=== PATIENT | female | born 1940 | race Caucasian/White ===

== ENCOUNTER 2018-03-06 15:19 | Inpatient (IN) | payer OTHER ==
[~2018-03-06] VITALS: Ht 162.6 cm; Wt 73.5 kg
[~2018-03-06 15:19] MED LIST: ASPI-630 PO; ATEN25TA PO; ATOR40TA PO; CALC1TAB PO; LEVO88TA4 PO; LISI1TAB3 PO; MULT-246 PO; OMEG1CAP6 PO
[2018-03-06] MEDS ORDERED: IV NORMAL SALINE 500ML BAG 500 ML IV SCH (15:45)
[2018-03-06 16:04] LABS: BASO # 0.1 x10^3/uL (0.0-0.2); BASO % 2 % (0-3); EOS # 0.2 x10^3/uL (0.0-0.7); EOS % 2 % (0-3); HEMATOCRIT 39.2 % (36.0-47.0); HEMOGLOBIN 13.9 g/dL (12.0-15.5); LYMPH % 23 % (24-48); MEAN CORPUSCULAR HEMOGLOBIN 33 pg (25-35); MEAN CORPUSCULAR HGB CONC 35 g/dL (31-37); MEAN CORPUSCULAR VOLUME 93 fL (79-100); MONO # 0.6 x10^3/uL (0.0-1.1); MONO % 7 % (0-9); NEUT # 5.8 x10^3uL (1.8-7.7); NEUT % 67 % (31-73); PLATELET COUNT 232 x10^3/uL (140-400); RED BLOOD COUNT 4.24 x10^6/uL (3.50-5.40); WHITE BLOOD COUNT 8.7 x10^3/uL (4.0-11.0)
--- NOTE | 2018-03-06 16:04 | PHYS DOC ---
Past Medical History Past Medical History: High Cholesterol, Hypertension, Hyperthyroid, Other Additional Past Medical Histor: IRREG HEART BEAT Past Surgical History: Tonsillectomy Alcohol Use: None Drug Use: None Adult General Chief Complaint Chief Complaint: DIZZY/LIGHT HEADED HPI HPI Patient is a 78 year old female who presents with dizziness and near syncope while she was at a park just prior to arrival. The patient states that she was watching her relatives on a [id number] when she became very dizzy. She states that she tried to turn around and walk away but her left arm and leg were not functioning appropriately. She states that they called EMS and she was transported directly to the emergency department. She denies any prior history of syncope or CVA. The patient does have a history of thyroid disease and hypertension. She has had an incident of an irregular heart rate that was worked up by cardiology and states that everything was found to be normal. She denies any recent illness. Stroke scale via EMS was 0. Review of Systems Review of Systems Constitutional: Denies fever or chills [] Eyes: Denies change in visual acuity, redness, or eye pain [] HENT: Denies nasal congestion or sore throat [] Respiratory: Denies cough or shortness of breath [] Cardiovascular: No additional information not addressed in HPI [] GI: Denies abdominal pain, nausea, vomiting, bloody stools or diarrhea [] : Denies dysuria or hematuria [] Musculoskeletal: Denies back pain or joint pain [] Integument: Denies rash or skin lesions [] Neurologic: See history of present illness Endocrine: Denies polyuria or polydipsia [] All other systems were reviewed and found to be within normal limits, except as documented in this note. Current Medications Current Medications Current Medications Medications (Trade) Dose Ordered Sig/Alicja Start Time Stop Time Status Last Admin Dose Admin Sodium Chloride 1,000 ml @ 1,000 mls/hr 1X ONCE 03/06/18 17:30 03/06/18 18:29 DC 03/06/18 17:55 1,000 MLS/HR Allergies Allergies Allergies Coded Allergies Type Severity Reaction Last Updated Verified Sulfa (Sulfonamide Antibiotics) Adverse Reaction Intermediate diarrhea Yes procaine Adverse Reaction Intermediate "DOESN'T WORK ON ME" 03/06/18 Yes Physical Exam Physical Exam Constitutional: Well developed, well nourished, no acute distress, non-toxic appearance. [] HENT: Normocephalic, atraumatic, bilateral external ears normal, oropharynx moist, no oral exudates, nose normal. [] Eyes: PERRLA, EOMI, conjunctiva normal, no discharge. [] Neck: Normal range of motion, no tenderness, supple, no stridor. [] Cardiovascular:Heart rate regular rhythm, no murmur [] Lungs & Thorax: Bilateral breath sounds clear to auscultation [] Abdomen: Bowel sounds normal, soft, no tenderness, no masses, no pulsatile masses. [] Skin: Warm, dry, no erythema, no rash. [] Back: No tenderness, no CVA tenderness. [] Extremities: No tenderness, no cyanosis, no clubbing, ROM intact, no edema. [] Neurologic: Alert and oriented X 3, normal motor function, normal sensory function, no focal deficits noted, cranial nerves II through XII are grossly intact, cerebellar function is intact. [] Psychologic: Affect normal, judgement normal, mood normal. [] Current Patient Data Vital Signs Vital Signs Date Time Temp Pulse Resp B/P (MAP) Pulse Ox O2 Delivery O2 Flow Rate FiO2 03/06/18 18:13 62 16 100 03/06/18 15:19 98.3 139/64 (89) Room Air 98.3 Lab Values Laboratory Tests Test 03/06/18 15:45 03/06/18 15:55 White Blood Count 8.7 x10^3/uL (4.0-11.0) Red Blood Count 4.24 x10^6/uL (3.50-5.40) Hemoglobin 13.9 g/dL (12.0-15.5) Hematocrit 39.2 % (36.0-47.0) Mean Corpuscular Volume 93 fL (79-100) Mean Corpuscular Hemoglobin 33 pg (25-35) Mean Corpuscular Hemoglobin Concent 35 g/dL (31-37) Red Cell Distribution Width 14.0 % (11.5-14.5) Platelet Count 232 x10^3/uL (140-400) Neutrophils (%) (Auto) 67 % (31-73) Lymphocytes (%) (Auto) 23 % (24-48) L Monocytes (%) (Auto) 7 % (0-9) Eosinophils (%) (Auto) 2 % (0-3) Basophils (%) (Auto) 2 % (0-3) Neutrophils # (Auto) 5.8 x10^3uL (1.8-7.7) Lymphocytes # (Auto) 2.0 x10^3/uL (1.0-4.8) Monocytes # (Auto) 0.6 x10^3/uL (0.0-1.1) Eosinophils # (Auto) 0.2 x10^3/uL (0.0-0.7) Basophils # (Auto) 0.1 x10^3/uL (0.0-0.2) Sodium Level 140 mmol/L (136-145) Potassium Level 3.9 mmol/L (3.5-5.1) Chloride Level 101 mmol/L (98-107) Carbon Dioxide Level 29 mmol/L (21-32) Anion Gap 10 (6-14) Blood Urea Nitrogen 34 mg/dL (7-20) H Creatinine 1.7 mg/dL (0.6-1.0) H Estimated GFR (Cockcroft-Gault) 29.1 BUN/Creatinine Ratio 20 (6-20) Glucose Level 148 mg/dL (70-99) H Calcium Level 9.7 mg/dL (8.5-10.1) Magnesium Level 2.2 mg/dL (1.8-2.4) Total Bilirubin 1.0 mg/dL (0.2-1.0) Aspartate Amino Transferase (AST) 66 U/L (15-37) H Alanine Aminotransferase (ALT) 57 U/L (14-59) Alkaline Phosphatase 81 U/L (46-116) Troponin I Quantitative < 0.017 ng/mL (0.000-0.055) Total Protein 7.1 g/dL (6.4-8.2) Albumin 3.6 g/dL (3.4-5.0) Albumin/Globulin Ratio 1.0 (1.0-1.7) Glucose (Fingerstick) 125 mg/dL (70-99) H Laboratory Tests 03/06/18 15:45 Laboratory Tests 03/06/18 15:45 EKG EKG [] Radiology/Procedures Radiology/Procedures [] PATIENT: MICKEY YOUSSEF ACCOUNT: [id number] : 1940 LOCATION: ER AGE: 78 SEX: F EXAM STATUS: REG ER ORD. PHYSICIAN: DELMA WILBURN APRN REASON: near syncope PROCEDURE: CT HEAD WO CONTRAST CHEST PA LATERAL, CT HEAD WO CONTRAST dated 03/06/2018 4:04 PM Indication:near syncope Comparison: No comparison is available. Technique: Noncontrast images were obtained. One or more of the following individualized dose reduction techniques were utilized for this examination: 1. Automated exposure control 2. Adjustment of the mA and/or kV according to patient size 3. Use of iterative reconstruction technique Findings: No intracranial hemorrhage or abnormal extra-axial fluid collection is seen. No focal area of abnormal density is identified in the brain. The ventricles and basilar cisterns are normally positioned. The paranasal sinuses and mastoid air cells appear clear. IMPRESSION: No acute abnormality. Chest PA and lateral 03/06/2018. Reason for exam: Dizziness and near syncope. No infiltrate or effusion is seen. Heart size and pulmonary vascularity appear normal. IMPRESSION: No acute abnormality. Electronically signed by: Shawanda Encarnacion Jr., MD (03/06/2018 4:34 PM) [facility] DICTATED and SIGNED BY: SHAWANDA ENCARNACION Jr, MD DATE: 03/06/18 163 Course & Med Decision Making Course & Med Decision Making Pertinent Labs and Imaging studies reviewed. (See chart for details) []The patient has been admitted for further evaluation. Neurology has been consulted. The patient is being admitted to Dr. Garcia's service. Dragon Disclaimer Dragon Disclaimer This electronic medical record was generated, in whole or in part, using a voice recognition dictation system. Departure Departure Impression: Primary Impression: Near syncope Disposition: ADMITTED INPATIENT Admitting Physician: Fidelina Garcia Condition: GOOD Referrals: PARADISE LLANES (PCP) DELMA WILBURN APRN Mar 06, 2018 16:04
[2018-03-06 16:08] LABS: CALCIUM 9.7 mg/dL (8.5-10.1); CREATININE 1.7 mg/dL (0.6-1.0); GFR 29.1; POTASSIUM 3.9 mmol/L (3.5-5.1)
[2018-03-06 16:14] LABS: ALBUMIN 3.6 g/dL (3.4-5.0); MAGNESIUM 2.2 mg/dL (1.8-2.4); TOTAL PROTEIN 7.1 g/dL (6.4-8.2)
--- NOTE | 2018-03-06 16:37 | RAD ---
CHEST PA LATERAL, CT HEAD WO CONTRAST dated 03/06/2018 4:04 PM Indication:near syncope Comparison: No comparison is available. Technique: Noncontrast images were obtained. One or more of the following individualized dose reduction techniques were utilized for this examination: 1. Automated exposure control 2. Adjustment of the mA and/or kV according to patient size 3. Use of iterative reconstruction technique Findings: No intracranial hemorrhage or abnormal extra-axial fluid collection is seen. No focal area of abnormal density is identified in the brain. The ventricles and basilar cisterns are normally positioned. The paranasal sinuses and mastoid air cells appear clear. IMPRESSION: No acute abnormality. Chest PA and lateral 03/06/2018. Reason for exam: Dizziness and near syncope. No infiltrate or effusion is seen. Heart size and pulmonary vascularity appear normal. IMPRESSION: No acute abnormality. Electronically signed by: Mehdi Encarnacion Jr., MD (03/06/2018 4:34 PM) [facility]
[2018-03-06] MEDS ORDERED: IV NORMAL SALINE 1000ML BAG 1,000 ML IV ONE (17:30)
[2018-03-06] MEDS ORDERED: fentaNYL PF VIAL 100 MCG/2 ML VIAL IV PRN (18:30)
[2018-03-06] MEDS ORDERED: ACETAMINOPHEN 325 MG TABLET. PO PRN (18:30)
[2018-03-06] MEDS ORDERED: MORPHINE SULFATE 4 MG/ML VIAL. IV PRN (18:30)
[2018-03-06] MEDS ORDERED: ONDANSETRON PF 4 MG/2 ML VIAL. IV PRN (18:30)
[2018-03-06 18:43] LABS: BILIRUBIN,URINE NEGATIVE (NEG); CLARITY,URINE CLEAR; COLOR,URINE YELLOW; NITRITE,URINE NEGATIVE (NEG); PH,URINE 6.5; PROTEIN,URINE NEGATIVE (NEG-TRACE); UROBILINOGEN,URINE 0.2 mg/dL (0.2 mg/dL)
[2018-03-06 18:52] LABS: BACTERIA,URINE MODERATE /HPF (0-FEW); RBC,URINE OCC /HPF (0-2); WBC,URINE 20-40 /HPF (0-4)
[2018-03-06 18:53] LABS: SQUAMOUS EPITHELIAL CELL,UR MANY /LPF
[2018-03-06 19:45] VITALS: BP 127/76
--- NOTE | 2018-03-06 19:53 | PDOC1 ---
History and Physical Date of Admission Date of Admission DATE: 03/06/18 TIME: 19:49 Source Source: Chart review History of Present Illness History of Present Illness Leeanna Weems is a 78 year old female admit with new dizziness and near syncope. She was at the [employer], she was then dizzy, and had trouble walking and had new leg weakness. New left sided weakness, she is usually very active, drives herself and is very independent. She tried to walk but her left arm and leg were not functioning appropriately. EMS transported and she has not tried to stand since. . She denies any prior history of syncope or CVA. The patient does have a history of thyroid disease and hypertension. Recent neg w/lowe for irregular heart rhythm Past Medical History Cardiovascular: No pertinent hx Pulmonary: No pertinent hx Past Surgical History Past Surgical History: No pertinent history Family History Family History: Coronary Artery Disease, Heart Disease Social History Smoke: No ALCOHOL: none Current Problem List Problem List Problems Medical Problems: (1) Near syncope Status: Acute Current Medications Current Medications Current Medications Sodium Chloride 500 ml @ 500 mls/hr Q1H IV Last administered on 03/06/18at 16: 17; Start 03/06/18 at 15:45; Stop 03/06/18 at 16:18; Status DC Sodium Chloride 1,000 ml @ 1,000 mls/hr 1X ONCE IV Last administered on at 17:55; Start 03/06/18 at 17:30; Stop 03/06/18 at 18:29; Status DC Ondansetron HCl (Zofran) 4 mg PRN Q8HRS PRN IV NAUSEA/VOMITING; Start 03/06/18 at 18:30; Stop 03/07/18 at 18:29 Morphine Sulfate (Morphine Sulfate) 4 mg PRN Q2HR PRN IV PAIN; Start 03/06/18 at 18:30; Stop 03/07/18 at 18:29 Fentanyl Citrate (Fentanyl 2ml Vial) 50 mcg PRN Q2HR PRN IV PAIN; Start at 18:30; Stop 03/07/18 at 18:29 Sodium Chloride 1,000 ml @ 125 mls/hr Q8H IV ; Start 03/06/18 at 18:27; Stop at 18:26 Acetaminophen (Tylenol) 650 mg PRN Q4HRS PRN PO FEVER; Start 03/06/18 at 18:30 ; Stop 03/07/18 at 18:29 Ceftriaxone Sodium 1 gm/ Dextrose 50 ml @ 100 mls/hr Q24H IV ; Start 03/06/18 at 20:00; Status UNV Active Scripts Active Reported Atenolol 25 Mg Tablet 1 Tab PO DAILY Lisinopril-Hctz 10-12.5 Mg Tab (Lisinopril/Hydrochlorothiazide) 1 Each Tablet 1 Tab PO DAILY Levothyroxine Sodium 88 Mcg Tablet 1 Tab PO DAILY Multi-Vitamin Daily (Multivitamin) 1 Each Tablet 1 Each PO DAILY Caltrate 600 + D Tablet (Calcium Carbonate/Vitamin D3) 1 Each Tablet 1 Each PO BID Fish Oil 1,000 Mg Capsule (Kaleva-3 Fatty Acids/Fish Oil) 1 Each Capsule 1 Each PO BID Lipitor (Atorvastatin Calcium) 40 Mg Tablet 1 Tab PO QHS Aspirin 81 Mg Tab.chew 1 Tab PO DAILY Allergies Allergies: Coded Allergies: Sulfa (Sulfonamide Antibiotics) (Verified Adverse Reaction, Intermediate, diarrhea, 02/03/15) procaine (Verified Adverse Reaction, Intermediate, "DOESN'T WORK ON ME", ) ROS General: YES: Chills, Fatigue; No: Night Sweats, Malaise, Appetite, Other PSYCHOLOGICAL ROS: No: Anxiety, Behavioral Disorder, Concentration difficultie , Decreased libido, Depression, Disorientation, Hallucinations, Hostility, Irritablity, Memory difficulties, Mood Swings, Obsessive thoughts, Physical abuse, Sexual abuse, Sleep disturbances, Suicidal ideation, Other Eyes: No Blurry vision, No Decreased vision, No Double vision, No Dry eyes, No Excessive tearing, No Eye Pain, No Itchy Eyes, No Loss of vision, No Photophobia , No Scotomata, No Uses contacts, No Uses glasses, No Other Respiratory: No: Cough, Hemoptysis, Orthopnea, Pleuritic Pain, Shortness of breath, SOB with excertion, Sputum Changes, Stridor, Tachypnea, Wheezing, Other Cardiovascular: No Chest Pain, No Palpitations, No Orthopnea, No Paroxysmal Noc. Dyspnea, No Edema, No Lt Headedness, No Other Gastrointestinal: No Nausea, No Vomiting, No Abdominal Pain, No Diarrhea, No Constipation, No Melena, No Hematochezia, No Other Genitourinary: No Dysuria, No Frequency, No Incontinence, No Hematuria, No Retention, No Discharge, No Urgency, No Pain, No Flank Pain, No Other, No , No , No , No , No , No , No Musculoskeletal: Yes Gait Disturbance, Yes Muscular Weakness, Yes Other; No Joint Pain, No Joint Stiffness, No Joint Swelling, No Muscle Pain, No Pain In:, No Swelling In: Neurological: Yes Confusion, Yes Dizziness, Yes Gait Disturbance, Yes Impaired Coord/balance, Yes Other; No Behavorial Changes, No Bowel/Bladder ControlChng, No Headaches, No Numbness/Tingling, No Seizures, No Speech Problems, No Tremors, No Visual Changes, No Weakness Skin: No Dry Skin, No Eczema, No Hair Changes, No Lumps, No Mole Changes, No Mottling, No Nail Changes, No Pruritus, No Rash, No Skin Lesion Changes, No Other, No Acne Physical Exam General: Alert, Cooperative, mild distress, Other (oriented, but some confusion , family reports she is not fully herself) Lungs: Clear to auscultation, Normal air movement Heart: S1S2, no gallops, irregularly irregular Abdomen: Normal bowel sounds, Soft Extremities: No cyanosis Skin: No rashes Neuro: Normal speech, Normal tone, Sensation intact, Cranial nerves 3-12 NL, Reflexes 2+, Other Psych/Mental Status: Mood NL Vitals Vitals Vital Signs Date Time Temp Pulse Resp B/P (MAP) Pulse Ox O2 Delivery O2 Flow Rate FiO2 03/06/18 19:13 62 18 100 03/06/18 15:19 98.3 139/64 (89) Room Air 98.3 Labs Labs Laboratory Tests Test 03/06/18 15:45 03/06/18 15:55 03/06/18 18:30 White Blood Count 8.7 x10^3/uL (4.0-11.0) Red Blood Count 4.24 x10^6/uL (3.50-5.40) Hemoglobin 13.9 g/dL (12.0-15.5) Hematocrit 39.2 % (36.0-47.0) Mean Corpuscular Volume 93 fL (79-100) Mean Corpuscular Hemoglobin 33 pg (25-35) Mean Corpuscular Hemoglobin Concent 35 g/dL (31-37) Red Cell Distribution Width 14.0 % (11.5-14.5) Platelet Count 232 x10^3/uL (140-400) Neutrophils (%) (Auto) 67 % (31-73) Lymphocytes (%) (Auto) 23 % (24-48) Monocytes (%) (Auto) 7 % (0-9) Eosinophils (%) (Auto) 2 % (0-3) Basophils (%) (Auto) 2 % (0-3) Neutrophils # (Auto) 5.8 x10^3uL (1.8-7.7) Lymphocytes # (Auto) 2.0 x10^3/uL (1.0-4.8) Monocytes # (Auto) 0.6 x10^3/uL (0.0-1.1) Eosinophils # (Auto) 0.2 x10^3/uL (0.0-0.7) Basophils # (Auto) 0.1 x10^3/uL (0.0-0.2) Sodium Level 140 mmol/L (136-145) Potassium Level 3.9 mmol/L (3.5-5.1) Chloride Level 101 mmol/L (98-107) Carbon Dioxide Level 29 mmol/L (21-32) Anion Gap 10 (6-14) Blood Urea Nitrogen 34 mg/dL (7-20) Creatinine 1.7 mg/dL (0.6-1.0) Estimated GFR (Cockcroft-Gault) 29.1 BUN/Creatinine Ratio 20 (6-20) Glucose Level 148 mg/dL (70-99) Calcium Level 9.7 mg/dL (8.5-10.1) Magnesium Level 2.2 mg/dL (1.8-2.4) Total Bilirubin 1.0 mg/dL (0.2-1.0) Aspartate Amino Transf (AST/SGOT) 66 U/L (15-37) Alanine Aminotransferase (ALT/SGPT) 57 U/L (14-59) Alkaline Phosphatase 81 U/L (46-116) Troponin I Quantitative < 0.017 ng/mL (0.000-0.055) Total Protein 7.1 g/dL (6.4-8.2) Albumin 3.6 g/dL (3.4-5.0) Albumin/Globulin Ratio 1.0 (1.0-1.7) Glucose (Fingerstick) 125 mg/dL (70-99) Urine Collection Type Void Urine Color Yellow Urine Clarity Clear Urine pH 6.5 Urine Specific [place] 1.015 Urine Protein Negative mg/dL (NEG-TRACE) Urine Glucose (UA) Negative mg/dL (NEG) Urine Ketones (Stick) Negative mg/dL (NEG) Urine Blood Negative (NEG) Urine Nitrite Negative (NEG) Urine Bilirubin Negative (NEG) Urine Urobilinogen Dipstick 0.2 mg/dL (0.2 mg/dL) Urine Leukocyte Esterase Large (NEG) Urine RBC Occ /HPF (0-2) Urine WBC 20-40 /HPF (0-4) Urine Squamous Epithelial Cells Many /LPF Urine Bacteria Moderate /HPF (0-FEW) Laboratory Tests Test 03/06/18 15:45 03/06/18 15:55 03/06/18 18:30 White Blood Count 8.7 x10^3/uL (4.0-11.0) Red Blood Count 4.24 x10^6/uL (3.50-5.40) Hemoglobin 13.9 g/dL (12.0-15.5) Hematocrit 39.2 % (36.0-47.0) Mean Corpuscular Volume 93 fL (79-100) Mean Corpuscular Hemoglobin 33 pg (25-35) Mean Corpuscular Hemoglobin Concent 35 g/dL (31-37) Red Cell Distribution Width 14.0 % (11.5-14.5) Platelet Count 232 x10^3/uL (140-400) Neutrophils (%) (Auto) 67 % (31-73) Lymphocytes (%) (Auto) 23 % (24-48) Monocytes (%) (Auto) 7 % (0-9) Eosinophils (%) (Auto) 2 % (0-3) Basophils (%) (Auto) 2 % (0-3) Neutrophils # (Auto) 5.8 x10^3uL (1.8-7.7) Lymphocytes # (Auto) 2.0 x10^3/uL (1.0-4.8) Monocytes # (Auto) 0.6 x10^3/uL (0.0-1.1) Eosinophils # (Auto) 0.2 x10^3/uL (0.0-0.7) Basophils # (Auto) 0.1 x10^3/uL (0.0-0.2) Sodium Level 140 mmol/L (136-145) Potassium Level 3.9 mmol/L (3.5-5.1) Chloride Level 101 mmol/L (98-107) Carbon Dioxide Level 29 mmol/L (21-32) Anion Gap 10 (6-14) Blood Urea Nitrogen 34 mg/dL (7-20) Creatinine 1.7 mg/dL (0.6-1.0) Estimated GFR (Cockcroft-Gault) 29.1 BUN/Creatinine Ratio 20 (6-20) Glucose Level 148 mg/dL (70-99) Calcium Level 9.7 mg/dL (8.5-10.1) Magnesium Level 2.2 mg/dL (1.8-2.4) Total Bilirubin 1.0 mg/dL (0.2-1.0) Aspartate Amino Transf (AST/SGOT) 66 U/L (15-37) Alanine Aminotransferase (ALT/SGPT) 57 U/L (14-59) Alkaline Phosphatase 81 U/L (46-116) Troponin I Quantitative < 0.017 ng/mL (0.000-0.055) Total Protein 7.1 g/dL (6.4-8.2) Albumin 3.6 g/dL (3.4-5.0) Albumin/Globulin Ratio 1.0 (1.0-1.7) Glucose (Fingerstick) 125 mg/dL (70-99) Urine Collection Type Void Urine Color Yellow Urine Clarity Clear Urine pH 6.5 Urine Specific [place] 1.015 Urine Protein Negative mg/dL (NEG-TRACE) Urine Glucose (UA) Negative mg/dL (NEG) Urine Ketones (Stick) Negative mg/dL (NEG) Urine Blood Negative (NEG) Urine Nitrite Negative (NEG) Urine Bilirubin Negative (NEG) Urine Urobilinogen Dipstick 0.2 mg/dL (0.2 mg/dL) Urine Leukocyte Esterase Large (NEG) Urine RBC Occ /HPF (0-2) Urine WBC 20-40 /HPF (0-4) Urine Squamous Epithelial Cells Many /LPF Urine Bacteria Moderate /HPF (0-FEW) VTE Prophylaxis Ordered VTE Prophylaxis Devices: No VTE Pharmacological Prophylaxi: Yes Assessment/Plan Assessment/Plan acute metabolic encephalopathy, UTI, start rocephin Left sided weakness, transient, w.u TIA< Ct neg, try MRI brain, carotids, she had recent Echo and CV outpatient appt for prior "irreg heart beat" normal reflexes, admit KALIN PABON MD Mar 06, 2018 19:53
[2018-03-06] MEDS ORDERED: ASPIRIN ENTERIC COATED 325 MG TABLET.DR. PO ONE (20:00)
[2018-03-06] MEDS: cefTRIAXone IV Push 1 GM VIAL. IVP SCH (21:02)
[2018-03-06] MEDS: ATORVASTATIN CALCIUM 40 MG TABLET. PO SCH (21:02)
[2018-03-06] MEDS: IV NORMAL SALINE 1000ML BAG 1,000 ML IV SCH (21:03)
[2018-03-06 23:00] VITALS: BP_SYST 115; BP_SYST 156; BP_DIAS 55; BP_DIAS 83
[2018-03-07] VITALS (12 sets, daily range): BP systolic 123–166; BP diastolic 57–86
[2018-03-07 04:54] LABS: BASO % 1 % (0-3); EOS # 0.1 x10^3/uL (0.0-0.7); EOS % 2 % (0-3); HEMATOCRIT 36.6 % (36.0-47.0); HEMOGLOBIN 12.9 g/dL (12.0-15.5); LYMPH # 2.5 x10^3/uL (1.0-4.8); LYMPH % 31 % (24-48); MEAN CORPUSCULAR HEMOGLOBIN 33 pg (25-35); MEAN CORPUSCULAR HGB CONC 35 g/dL (31-37); MEAN CORPUSCULAR VOLUME 94 fL (79-100); MONO # 0.6 x10^3/uL (0.0-1.1); MONO % 8 % (0-9); NEUT # 4.7 x10^3uL (1.8-7.7); NEUT % 59 % (31-73); PLATELET COUNT 168 x10^3/uL (140-400); RED BLOOD COUNT 3.92 x10^6/uL (3.50-5.40); RED CELL DISTRIBUTION WIDTH 13.1 % (11.5-14.5); WHITE BLOOD COUNT 7.9 x10^3/uL (4.0-11.0)
[2018-03-07 05:25] LABS: CALCIUM 8.4 mg/dL (8.5-10.1); CREATININE 1.4 mg/dL (0.6-1.0); GFR 36.5; POTASSIUM 3.6 mmol/L (3.5-5.1)
[2018-03-07 05:28] LABS: CHOLESTEROL/HDL RATIO 2.8
--- NOTE | 2018-03-07 07:01 | RAD ---
DOPPLER CAROTID BILAT Clinical Indication: TIA.. Procedure: Pulsed wave and color-flow duplex imaging was utilized to evaluate the extracranial carotid arteries. Comparison: None. Findings: RIGHT SIDE: Scattered mild atherosclerotic plaque on ahmadi-scale images. Distal CCA peak systolic velocity 58 cm/sec. ICA peak systolic velocity 69 cm/sec. The right ICA/CCA ratio is 1.2. Flow within the right vertebral artery and right ECA is directed antegrade. LEFT SIDE: Scattered mild atherosclerotic plaque on ahmadi-scale images. Distal CCA peak systolic velocity 58 cm/sec. ICA peak systolic velocity 90 cm/sec. The left ICA/CCA ratio is 1.6. Flow within the left vertebral artery and left ECA is directed antegrade. Carotid legend: CCA = common carotid artery ICA = internal carotid artery ECA = external carotid artery IMPRESSION: 1. Mild scattered atherosclerotic plaque in the carotid bulbs. 2. No hemodynamically significant stenosis in the ICA. Electronically signed by: Conner Carmona DO (03/07/2018 6:57 AM) [facility]
[2018-03-07] MEDS: LEVOTHYROXINE 88 MCG TABLET PO SCH (07:03)
[2018-03-07] MEDS: IV NORMAL SALINE 1000ML BAG 1,000 ML IV SCH ×2 (07:04→16:03)
[2018-03-07] MEDS: ASPIRIN ENTERIC COATED 325 MG TABLET.DR. PO SCH (08:00)
[2018-03-07] MEDS: MULTIVITAMIN with MINERAL TABLET. PO SCH (08:22)
[2018-03-07] MEDS: hydroCHLOROthiazide 12.5 MG CAPSULE PO SCH (08:23)
[2018-03-07] MEDS: LISINOPRIL 10 MG TABLET PO SCH (08:23)
[2018-03-07] MEDS: CALCIUM CARB/VIT D3 500/200 TABLET. PO SCH ×2 (08:23→16:08)
[2018-03-07] MEDS: ATENOLOL 25 MG TABLET. PO SCH (08:24)
[2018-03-07] MEDS: ENOXAPARIN 30 MG/0.3 ML SYRINGE. SQ SCH (08:25)
[2018-03-07] MEDS ORDERED: INFLUENZA VAX SCREEN BY RX. MC ONE (09:00)
--- NOTE | 2018-03-07 14:01 | PDOC ---
PROGRESS NOTES Chief Complaint Chief Complaint acute metabolic encephalopathy, CVA symptom left side weakness resolved bl blurry vision possible UTI wo symptom she had recent Echo and CV outpatient appt for prior "irreg heart beat" hypothyroidism MIQUEL, vasomotor ckd3 plan: fu with neuro MRI brain pending on asa 325mg daily, lipitor on HTN meds, already taken today before i saw pt on ceftriaxone, no symptom, cont for now, dc if neg ucx PTOT dvt ppx talked to daughter at bedside add tele History of Present Illness History of Present Illness still blurry vision left side weakness much better Vitals Vitals Vital Signs Date Time Temp Pulse Resp B/P (MAP) Pulse Ox O2 Delivery O2 Flow Rate FiO2 03/07/18 11:00 98.0 56 16 166/67 (100) 100 Room Air 98.0 Physical Exam Physical Exam bl strength 5/5 General: Alert, Cooperative, mild distress, Other (oriented, but some confusion , family reports she is not fully herself) Heart: Regular rate, Normal S1, Normal S2 Lungs: Clear Abdomen: Normal bowel sounds, Soft Extremities: No cyanosis Skin: No rashes Labs LABS Laboratory Tests Test 03/06/18 15:45 03/06/18 15:55 03/06/18 18:30 03/07/18 04:15 White Blood Count 8.7 x10^3/uL (4.0-11.0) 7.9 x10^3/uL (4.0-11.0) Red Blood Count 4.24 x10^6/uL (3.50-5.40) 3.92 x10^6/uL (3.50-5.40) Hemoglobin 13.9 g/dL (12.0-15.5) 12.9 g/dL (12.0-15.5) Hematocrit 39.2 % (36.0-47.0) 36.6 % (36.0-47.0) Mean Corpuscular Volume 93 fL (79-100) 94 fL (79-100) Mean Corpuscular Hemoglobin 33 pg (25-35) 33 pg (25-35) Mean Corpuscular Hemoglobin Concent 35 g/dL (31-37) 35 g/dL (31-37) Red Cell Distribution Width 14.0 % (11.5-14.5) 13.1 % (11.5-14.5) Platelet Count 232 x10^3/uL (140-400) 168 x10^3/uL (140-400) Neutrophils (%) (Auto) 67 % (31-73) 59 % (31-73) Lymphocytes (%) (Auto) 23 % (24-48) 31 % (24-48) Monocytes (%) (Auto) 7 % (0-9) 8 % (0-9) Eosinophils (%) (Auto) 2 % (0-3) 2 % (0-3) Basophils (%) (Auto) 2 % (0-3) 1 % (0-3) Neutrophils # (Auto) 5.8 x10^3uL (1.8-7.7) 4.7 x10^3uL (1.8-7.7) Lymphocytes # (Auto) 2.0 x10^3/uL (1.0-4.8) 2.5 x10^3/uL (1.0-4.8) Monocytes # (Auto) 0.6 x10^3/uL (0.0-1.1) 0.6 x10^3/uL (0.0-1.1) Eosinophils # (Auto) 0.2 x10^3/uL (0.0-0.7) 0.1 x10^3/uL (0.0-0.7) Basophils # (Auto) 0.1 x10^3/uL (0.0-0.2) 0.0 x10^3/uL (0.0-0.2) Sodium Level 140 mmol/L (136-145) 141 mmol/L (136-145) Potassium Level 3.9 mmol/L (3.5-5.1) 3.6 mmol/L (3.5-5.1) Chloride Level 101 mmol/L (98-107) 107 mmol/L (98-107) Carbon Dioxide Level 29 mmol/L (21-32) 26 mmol/L (21-32) Anion Gap 10 (6-14) 8 (6-14) Blood Urea Nitrogen 34 mg/dL (7-20) 25 mg/dL (7-20) Creatinine 1.7 mg/dL (0.6-1.0) 1.4 mg/dL (0.6-1.0) Estimated GFR (Cockcroft-Gault) 29.1 36.5 BUN/Creatinine Ratio 20 (6-20) Glucose Level 148 mg/dL (70-99) 89 mg/dL (70-99) Calcium Level 9.7 mg/dL (8.5-10.1) 8.4 mg/dL (8.5-10.1) Magnesium Level 2.2 mg/dL (1.8-2.4) Total Bilirubin 1.0 mg/dL (0.2-1.0) Aspartate Amino Transf (AST/SGOT) 66 U/L (15-37) Alanine Aminotransferase (ALT/SGPT) 57 U/L (14-59) Alkaline Phosphatase 81 U/L (46-116) Troponin I Quantitative < 0.017 ng/mL (0.000-0.055) Total Protein 7.1 g/dL (6.4-8.2) Albumin 3.6 g/dL (3.4-5.0) Albumin/Globulin Ratio 1.0 (1.0-1.7) Glucose (Fingerstick) 125 mg/dL (70-99) Urine Collection Type Void Urine Color Yellow Urine Clarity Clear Urine pH 6.5 Urine Specific Rowe 1.015 Urine Protein Negative mg/dL (NEG-TRACE) Urine Glucose (UA) Negative mg/dL (NEG) Urine Ketones (Stick) Negative mg/dL (NEG) Urine Blood Negative (NEG) Urine Nitrite Negative (NEG) Urine Bilirubin Negative (NEG) Urine Urobilinogen Dipstick 0.2 mg/dL (0.2 mg/dL) Urine Leukocyte Esterase Large (NEG) Urine RBC Occ /HPF (0-2) Urine WBC 20-40 /HPF (0-4) Urine Squamous Epithelial Cells Many /LPF Urine Bacteria Moderate /HPF (0-FEW) Triglycerides Level 84 mg/dL (0-150) Cholesterol Level 151 mg/dL (0-200) LDL Cholesterol, Calculated 81 mg/dL (0-100) VLDL Cholesterol, Calculated 17 mg/dL (0-40) Non-HDL Cholesterol Calculated 98 mg/dL (0-129) HDL Cholesterol 53 mg/dL (40-60) Cholesterol/HDL Ratio 2.8 Thyroid Stimulating Hormone (TSH) 0.889 uIU/mL (0.358-3.74) Assessment and Plan Assessmemt and Plan Problems Medical Problems: (1) Near syncope Status: Acute Comment Review of Relevant I have reviewed the following items cassandra (where applicable) has been applied. Labs Laboratory Tests Test 03/06/18 15:45 03/06/18 15:55 03/06/18 18:30 03/07/18 04:15 White Blood Count 8.7 x10^3/uL (4.0-11.0) 7.9 x10^3/uL (4.0-11.0) Red Blood Count 4.24 x10^6/uL (3.50-5.40) 3.92 x10^6/uL (3.50-5.40) Hemoglobin 13.9 g/dL (12.0-15.5) 12.9 g/dL (12.0-15.5) Hematocrit 39.2 % (36.0-47.0) 36.6 % (36.0-47.0) Mean Corpuscular Volume 93 fL (79-100) 94 fL (79-100) Mean Corpuscular Hemoglobin 33 pg (25-35) 33 pg (25-35) Mean Corpuscular Hemoglobin Concent 35 g/dL (31-37) 35 g/dL (31-37) Red Cell Distribution Width 14.0 % (11.5-14.5) 13.1 % (11.5-14.5) Platelet Count 232 x10^3/uL (140-400) 168 x10^3/uL (140-400) Neutrophils (%) (Auto) 67 % (31-73) 59 % (31-73) Lymphocytes (%) (Auto) 23 % (24-48) 31 % (24-48) Monocytes (%) (Auto) 7 % (0-9) 8 % (0-9) Eosinophils (%) (Auto) 2 % (0-3) 2 % (0-3) Basophils (%) (Auto) 2 % (0-3) 1 % (0-3) Neutrophils # (Auto) 5.8 x10^3uL (1.8-7.7) 4.7 x10^3uL (1.8-7.7) Lymphocytes # (Auto) 2.0 x10^3/uL (1.0-4.8) 2.5 x10^3/uL (1.0-4.8) Monocytes # (Auto) 0.6 x10^3/uL (0.0-1.1) 0.6 x10^3/uL (0.0-1.1) Eosinophils # (Auto) 0.2 x10^3/uL (0.0-0.7) 0.1 x10^3/uL (0.0-0.7) Basophils # (Auto) 0.1 x10^3/uL (0.0-0.2) 0.0 x10^3/uL (0.0-0.2) Sodium Level 140 mmol/L (136-145) 141 mmol/L (136-145) Potassium Level 3.9 mmol/L (3.5-5.1) 3.6 mmol/L (3.5-5.1) Chloride Level 101 mmol/L (98-107) 107 mmol/L (98-107) Carbon Dioxide Level 29 mmol/L (21-32) 26 mmol/L (21-32) Anion Gap 10 (6-14) 8 (6-14) Blood Urea Nitrogen 34 mg/dL (7-20) 25 mg/dL (7-20) Creatinine 1.7 mg/dL (0.6-1.0) 1.4 mg/dL (0.6-1.0) Estimated GFR (Cockcroft-Gault) 29.1 36.5 BUN/Creatinine Ratio 20 (6-20) Glucose Level 148 mg/dL (70-99) 89 mg/dL (70-99) Calcium Level 9.7 mg/dL (8.5-10.1) 8.4 mg/dL (8.5-10.1) Magnesium Level 2.2 mg/dL (1.8-2.4) Total Bilirubin 1.0 mg/dL (0.2-1.0) Aspartate Amino Transf (AST/SGOT) 66 U/L (15-37) Alanine Aminotransferase (ALT/SGPT) 57 U/L (14-59) Alkaline Phosphatase 81 U/L (46-116) Troponin I Quantitative < 0.017 ng/mL (0.000-0.055) Total Protein 7.1 g/dL (6.4-8.2) Albumin 3.6 g/dL (3.4-5.0) Albumin/Globulin Ratio 1.0 (1.0-1.7) Glucose (Fingerstick) 125 mg/dL (70-99) Urine Collection Type Void Urine Color Yellow Urine Clarity Clear Urine pH 6.5 Urine Specific Rowe 1.015 Urine Protein Negative mg/dL (NEG-TRACE) Urine Glucose (UA) Negative mg/dL (NEG) Urine Ketones (Stick) Negative mg/dL (NEG) Urine Blood Negative (NEG) Urine Nitrite Negative (NEG) Urine Bilirubin Negative (NEG) Urine Urobilinogen Dipstick 0.2 mg/dL (0.2 mg/dL) Urine Leukocyte Esterase Large (NEG) Urine RBC Occ /HPF (0-2) Urine WBC 20-40 /HPF (0-4) Urine Squamous Epithelial Cells Many /LPF Urine Bacteria Moderate /HPF (0-FEW) Triglycerides Level 84 mg/dL (0-150) Cholesterol Level 151 mg/dL (0-200) LDL Cholesterol, Calculated 81 mg/dL (0-100) VLDL Cholesterol, Calculated 17 mg/dL (0-40) Non-HDL Cholesterol Calculated 98 mg/dL (0-129) HDL Cholesterol 53 mg/dL (40-60) Cholesterol/HDL Ratio 2.8 Thyroid Stimulating Hormone (TSH) 0.889 uIU/mL (0.358-3.74) Laboratory Tests Test 03/06/18 15:45 03/06/18 15:55 03/06/18 18:30 03/07/18 04:15 White Blood Count 8.7 x10^3/uL (4.0-11.0) 7.9 x10^3/uL (4.0-11.0) Red Blood Count 4.24 x10^6/uL (3.50-5.40) 3.92 x10^6/uL (3.50-5.40) Hemoglobin 13.9 g/dL (12.0-15.5) 12.9 g/dL (12.0-15.5) Hematocrit 39.2 % (36.0-47.0) 36.6 % (36.0-47.0) Mean Corpuscular Volume 93 fL (79-100) 94 fL (79-100) Mean Corpuscular Hemoglobin 33 pg (25-35) 33 pg (25-35) Mean Corpuscular Hemoglobin Concent 35 g/dL (31-37) 35 g/dL (31-37) Red Cell Distribution Width 14.0 % (11.5-14.5) 13.1 % (11.5-14.5) Platelet Count 232 x10^3/uL (140-400) 168 x10^3/uL (140-400) Neutrophils (%) (Auto) 67 % (31-73) 59 % (31-73) Lymphocytes (%) (Auto) 23 % (24-48) 31 % (24-48) Monocytes (%) (Auto) 7 % (0-9) 8 % (0-9) Eosinophils (%) (Auto) 2 % (0-3) 2 % (0-3) Basophils (%) (Auto) 2 % (0-3) 1 % (0-3) Neutrophils # (Auto) 5.8 x10^3uL (1.8-7.7) 4.7 x10^3uL (1.8-7.7) Lymphocytes # (Auto) 2.0 x10^3/uL (1.0-4.8) 2.5 x10^3/uL (1.0-4.8) Monocytes # (Auto) 0.6 x10^3/uL (0.0-1.1) 0.6 x10^3/uL (0.0-1.1) Eosinophils # (Auto) 0.2 x10^3/uL (0.0-0.7) 0.1 x10^3/uL (0.0-0.7) Basophils # (Auto) 0.1 x10^3/uL (0.0-0.2) 0.0 x10^3/uL (0.0-0.2) Sodium Level 140 mmol/L (136-145) 141 mmol/L (136-145) Potassium Level 3.9 mmol/L (3.5-5.1) 3.6 mmol/L (3.5-5.1) Chloride Level 101 mmol/L (98-107) 107 mmol/L (98-107) Carbon Dioxide Level 29 mmol/L (21-32) 26 mmol/L (21-32) Anion Gap 10 (6-14) 8 (6-14) Blood Urea Nitrogen 34 mg/dL (7-20) 25 mg/dL (7-20) Creatinine 1.7 mg/dL (0.6-1.0) 1.4 mg/dL (0.6-1.0) Estimated GFR (Cockcroft-Gault) 29.1 36.5 BUN/Creatinine Ratio 20 (6-20) Glucose Level 148 mg/dL (70-99) 89 mg/dL (70-99) Calcium Level 9.7 mg/dL (8.5-10.1) 8.4 mg/dL (8.5-10.1) Magnesium Level 2.2 mg/dL (1.8-2.4) Total Bilirubin 1.0 mg/dL (0.2-1.0) Aspartate Amino Transf (AST/SGOT) 66 U/L (15-37) Alanine Aminotransferase (ALT/SGPT) 57 U/L (14-59) Alkaline Phosphatase 81 U/L (46-116) Troponin I Quantitative < 0.017 ng/mL (0.000-0.055) Total Protein 7.1 g/dL (6.4-8.2) Albumin 3.6 g/dL (3.4-5.0) Albumin/Globulin Ratio 1.0 (1.0-1.7) Glucose (Fingerstick) 125 mg/dL (70-99) Urine Collection Type Void Urine Color Yellow Urine Clarity Clear Urine pH 6.5 Urine Specific Rowe 1.015 Urine Protein Negative mg/dL (NEG-TRACE) Urine Glucose (UA) Negative mg/dL (NEG) Urine Ketones (Stick) Negative mg/dL (NEG) Urine Blood Negative (NEG) Urine Nitrite Negative (NEG) Urine Bilirubin Negative (NEG) Urine Urobilinogen Dipstick 0.2 mg/dL (0.2 mg/dL) Urine Leukocyte Esterase Large (NEG) Urine RBC Occ /HPF (0-2) Urine WBC 20-40 /HPF (0-4) Urine Squamous Epithelial Cells Many /LPF Urine Bacteria Moderate /HPF (0-FEW) Triglycerides Level 84 mg/dL (0-150) Cholesterol Level 151 mg/dL (0-200) LDL Cholesterol, Calculated 81 mg/dL (0-100) VLDL Cholesterol, Calculated 17 mg/dL (0-40) Non-HDL Cholesterol Calculated 98 mg/dL (0-129) HDL Cholesterol 53 mg/dL (40-60) Cholesterol/HDL Ratio 2.8 Thyroid Stimulating Hormone (TSH) 0.889 uIU/mL (0.358-3.74) Medications Current Medications Sodium Chloride 500 ml @ 500 mls/hr Q1H IV Last administered on 03/06/18at 16: 17; Start 03/06/18 at 15:45; Stop 03/06/18 at 16:18; Status DC Sodium Chloride 1,000 ml @ 1,000 mls/hr 1X ONCE IV Last administered on at 17:55; Start 03/06/18 at 17:30; Stop 03/06/18 at 18:29; Status DC Ondansetron HCl (Zofran) 4 mg PRN Q8HRS PRN IV NAUSEA/VOMITING; Start 03/06/18 at 18:30; Stop 03/07/18 at 18:29 Morphine Sulfate (Morphine Sulfate) 4 mg PRN Q2HR PRN IV PAIN; Start 03/06/18 at 18:30; Stop 03/07/18 at 18:29 Fentanyl Citrate (Fentanyl 2ml Vial) 50 mcg PRN Q2HR PRN IV PAIN; Start at 18:30; Stop 03/07/18 at 18:29 Sodium Chloride 1,000 ml @ 125 mls/hr Q8H IV Last administered on 03/07/18at 07 :04; Start 03/06/18 at 18:27; Stop 03/07/18 at 18:26 Acetaminophen (Tylenol) 650 mg PRN Q4HRS PRN PO FEVER; Start 03/06/18 at 18:30 ; Stop 03/07/18 at 18:29 Ceftriaxone Sodium 1 gm/ Dextrose 50 ml @ 100 mls/hr Q24H IV ; Start 03/06/18 at 20:00; Status UNV Enoxaparin Sodium (Lovenox Per Pharmacy Prophylaxis Dosing) 1 each PRN DAILY PRN MC SEE COMMENTS; Start 03/06/18 at 20:00 Aspirin (Ecotrin) 325 mg 1X ONCE PO Last administered on 03/06/18at 21:02; Start 03/06/18 at 20:00; Stop 03/06/18 at 20:01; Status DC Aspirin (Ecotrin) 325 mg DAILYWBKFT PO ; Start 03/07/18 at 08:00 Ceftriaxone Sodium (Rocephin) 1 gm QHS IVP Last administered on 03/06/18 21:02 ; Start 03/06/18 at 19:52 Atorvastatin Calcium (Lipitor) 40 mg QHS PO Last administered on 03/06/18at 21: 02; Start 03/06/18 at 21:00 Levothyroxine Sodium (Synthroid) 88 mcg DAILY07 PO Last administered on 07:03; Start 03/07/18 at 07:00 Atenolol (Tenormin) 25 mg DAILY PO Last administered on 03/07/18at 08:24; Start 03/07/18 at 09:00 Calcium/Vitamin D (Oscal D 500mg/ 200uts) 1 tab BIDWMEALS PO Last administered on 03/07/18 08:23; Start 03/07/18 at 08:00 Lisinopril (Prinivil) 10 mg DAILY PO Last administered on 03/07/18 08:23; Start 03/07/18 at 09:00 Multivitamins (Thera M Plus) 1 tab DAILY PO Last administered on 03/07/18at 08: 22; Start 03/07/18 at 09:00 Enoxaparin Sodium (Lovenox 30mg Syringe) 30 mg DAILY SQ Last administered on at 08:25; Start 03/07/18 at 09:00 Hydrochlorothiazide (Microzide) 12.5 mg DAILY PO Last administered on at 08:23; Start 03/07/18 at 09:00 Info (Do NOT chart on this placeholder) 1 each 1X ONCE MC ; Start 03/07/18 at 09:00; Stop 03/07/18 at 09:01; Status UNV Influenza Virus Vaccine (Afluria Trivalent [id number] Syringe) 0.5 ml ONCE ONCE VAX IM ; Start 03/07/18 at 09:00; Stop 03/07/18 at 09:01; Status DC Lactobacillus Rhamnosus (Culturelle) 1 cap BID PO ; Start 03/07/18 at 21:00 Active Scripts Active Reported Atenolol 25 Mg Tablet 1 Tab PO DAILY Lisinopril-Hctz 10-12.5 Mg Tab (Lisinopril/Hydrochlorothiazide) 1 Each Tablet 1 Tab PO DAILY Levothyroxine Sodium 88 Mcg Tablet 1 Tab PO DAILY Multi-Vitamin Daily (Multivitamin) 1 Each Tablet 1 Each PO DAILY Caltrate 600 + D Tablet (Calcium Carbonate/Vitamin D3) 1 Each Tablet 1 Each PO BID Fish Oil 1,000 Mg Capsule ([place]-3 Fatty Acids/Fish Oil) 1 Each Capsule 1 Each PO BID Lipitor (Atorvastatin Calcium) 40 Mg Tablet 1 Tab PO QHS Aspirin 81 Mg Tab.chew 1 Tab PO DAILY Vitals/I & O Vital Sign - Last 24 Hours 03/06/18 03/06/18 03/06/18 03/06/18 15:19 15:51 16:43 17:13 Temp 98.3 98.3 Pulse 61 60 58 60 Resp 16 16 19 18 B/P (MAP) 139/64 (89) Pulse Ox 98 97 95 92 O2 Delivery Room Air 03/06/18 03/06/18 03/06/18 03/06/18 17:43 18:13 18:43 19:13 Pulse 58 62 64 62 Resp 17 16 16 18 Pulse Ox 92 100 100 100 03/06/18 03/06/18 03/06/18 03/07/18 19:45 20:00 23:00 03:00 Temp 98.0 97.7 98.0 98.0 97.7 98.0 Pulse 65 65 64 Resp 18 18 18 B/P (MAP) 127/76 (93) 115/55 (75) 130/69 (89) Pulse Ox 92 98 93 O2 Delivery Room Air Room Air Room Air Room Air 03/07/18 03/07/18 03/07/18 03/07/18 07:00 08:23 08:24 11:00 Temp 98.0 98.0 98.0 98.0 Pulse 59 57 59 56 Resp 16 16 B/P (MAP) 136/71 (92) 136/71 136/71 166/67 (100) Pulse Ox 96 100 O2 Delivery Room Air Room Air Intake and Output 03/06/18 03/06/18 03/07/18 15:00 23:00 07:00 Intake Total 1400 ml Balance 1400 ml MIRI BRISENO MD Mar 07, 2018 14:01
--- NOTE | 2018-03-07 15:52 | PDOC2 ---
NEUROLOGY CONSULT Date of Admission Date of Admission DATE: 03/07/18 TIME: 15:33 Reason for Consult Reason for Consult: IMPRESSION: Dizziness. Near syncope. Left side heaviness? Diplopia and blurred vision. UTI. HTN. HLD. Renal insufficiency. Hyperthyroidism. Cardiac arrhythmia. Longstanding history of smoking. RECOMMENDATIONS/PLAN: ASA 325 mg daily. Lipitor 40 mg HS. Brain MRI w/o contrast. Echo + Bubble study. Lab: see orders. Treat medical diseases. Discussed with her daughters at bedside on 03/07/18. Carotid A + Doppler: No high grade stenosis. MRI reports: Pending. HISTORY OF THE PRESENT ILLNESS: Leeanna Weems is a 78 years old female was admit due to symptoms of dizziness, near syncope, blurred vision and diplopia, and left side not functioning appropriately. Her symptoms developed while she was at the park watching kids. She had trouble walking due to left side not functioning. PAST MEDICAL HISTORY: Please see above. Cardiac arrhythmia recently found. PAST SURGERY HISTORY: Tonsillectomy. ALLERGY: NKDA MEDICATIONS: Refer to [facility] FAMILY HISTORY: Heart disease. SOCIAL HISTORY: Lives at home. Denies drinking and illicit drug use. She smokes about 1 pack of cigarettes a day for 50 years. REVIEW OF SYSTEMS: Constitutional: No malnutrition, weight loss, cachexia. Head: No traumatic brain or head injury. Skin: No edema, or rash. Ear: No infection. Eyes: No vision loss or color blindness. Nose: No bleeding or purulent discharges. Hearing: Mild hearing decrease. Neck: No injury. Breast: No history of cancer, masses,or discharges. Cardiac: HTN, HLD. Pulmonary: Smoking. GI: No GI ulcer, GI bleeding. Urinary/genital: UTI. Endocrinologic: No cousin face, craniofacial dysmorphism, polydactyly. Skeletomuscular: No muscular atrophy, deformity. Neurological: see HP. Psychiatric: Denies drug use/abuse. Otherwise, not [id number] review of systems. PHYSICAL EXAMINATION: General appearance is in anxious. HEENT: Normocephalic and nontraumatic. Eyes, nose, ears, and throat are unremarkable. Neck is supple. No lymphadenopathy. No bruits are heard over the carotid artery. No crepitus. Cardiovascular: S1, S2, regular rate and rhythm. Pulmonary: Clear to auscultation bilaterally. Abdomen: Bowel sounds are positive. Abdomen is soft, nontender, and nondistended. Extremities: No rash, lesions, or edema. No restriction of range of motion NEUROLOGICAL EXAMINATION: Alert Oriented to time, place and person. PERRL. EOMI. CN: no focal findings. Muscle tone: within normal. Muscle strength: 4+ DTR: 2 Plantar reflex: Flexor response bilaterally Gait: not examined in bed. Sensory exam: no abnormal findings. No cerebellar signs elicited. F-T-N test fine Current Medications Current Medications Current Medications Sodium Chloride 500 ml @ 500 mls/hr Q1H IV Last administered on 03/06/18at 16: 17; Start 03/06/18 at 15:45; Stop 03/06/18 at 16:18; Status DC Sodium Chloride 1,000 ml @ 1,000 mls/hr 1X ONCE IV Last administered on at 17:55; Start 03/06/18 at 17:30; Stop 03/06/18 at 18:29; Status DC Ondansetron HCl (Zofran) 4 mg PRN Q8HRS PRN IV NAUSEA/VOMITING; Start 03/06/18 at 18:30; Stop 03/07/18 at 18:29 Morphine Sulfate (Morphine Sulfate) 4 mg PRN Q2HR PRN IV PAIN; Start 03/06/18 at 18:30; Stop 03/07/18 at 18:29 Fentanyl Citrate (Fentanyl 2ml Vial) 50 mcg PRN Q2HR PRN IV PAIN; Start at 18:30; Stop 03/07/18 at 18:29 Sodium Chloride 1,000 ml @ 125 mls/hr Q8H IV Last administered on 03/07/18at 07 :04; Start 03/06/18 at 18:27; Stop 03/07/18 at 18:26 Acetaminophen (Tylenol) 650 mg PRN Q4HRS PRN PO FEVER; Start 03/06/18 at 18:30 ; Stop 03/07/18 at 18:29 Ceftriaxone Sodium 1 gm/ Dextrose 50 ml @ 100 mls/hr Q24H IV ; Start 03/06/18 at 20:00; Status UNV Enoxaparin Sodium (Lovenox Per Pharmacy Prophylaxis Dosing) 1 each PRN DAILY PRN MC SEE COMMENTS; Start 03/06/18 at 20:00 Aspirin (Ecotrin) 325 mg 1X ONCE PO Last administered on 03/06/18at 21:02; Start 03/06/18 at 20:00; Stop 03/06/18 at 20:01; Status DC Aspirin (Ecotrin) 325 mg DAILYWBKFT PO ; Start 03/07/18 at 08:00 Ceftriaxone Sodium (Rocephin) 1 gm QHS IVP Last administered on 03/06/18at 21:02 ; Start 03/06/18 at 19:52 Atorvastatin Calcium (Lipitor) 40 mg QHS PO Last administered on 03/06/18at 21: 02; Start 03/06/18 at 21:00 Levothyroxine Sodium (Synthroid) 88 mcg DAILY07 PO Last administered on at 07:03; Start 03/07/18 at 07:00 Atenolol (Tenormin) 25 mg DAILY PO Last administered on 03/07/18at 08:24; Start 03/07/18 at 09:00 Calcium/Vitamin D (Oscal D 500mg/ 200uts) 1 tab BIDWMEALS PO Last administered on 03/07/18at 08:23; Start 03/07/18 at 08:00 Lisinopril (Prinivil) 10 mg DAILY PO Last administered on 03/07/18at 08:23; Start 03/07/18 at 09:00 Multivitamins (Thera M Plus) 1 tab DAILY PO Last administered on 03/07/18at 08: 22; Start 03/07/18 at 09:00 Enoxaparin Sodium (Lovenox 30mg Syringe) 30 mg DAILY SQ Last administered on at 08:25; Start 03/07/18 at 09:00 Hydrochlorothiazide (Microzide) 12.5 mg DAILY PO Last administered on at 08:23; Start 03/07/18 at 09:00 Info (Do NOT chart on this placeholder) 1 each 1X ONCE MC ; Start 03/07/18 at 09:00; Stop 03/07/18 at 09:01; Status UNV Influenza Virus Vaccine (Afluria Trivalent [id number] Syringe) 0.5 ml ONCE ONCE VAX IM ; Start 03/07/18 at 09:00; Stop 03/07/18 at 09:01; Status DC Lactobacillus Rhamnosus (Culturelle) 1 cap BID PO ; Start 03/07/18 at 21:00 Active Scripts Active Reported Atenolol 25 Mg Tablet 1 Tab PO DAILY Lisinopril-Hctz 10-12.5 Mg Tab (Lisinopril/Hydrochlorothiazide) 1 Each Tablet 1 Tab PO DAILY Levothyroxine Sodium 88 Mcg Tablet 1 Tab PO DAILY Multi-Vitamin Daily (Multivitamin) 1 Each Tablet 1 Each PO DAILY Caltrate 600 + D Tablet (Calcium Carbonate/Vitamin D3) 1 Each Tablet 1 Each PO BID Fish Oil 1,000 Mg Capsule (Marshall-3 Fatty Acids/Fish Oil) 1 Each Capsule 1 Each PO BID Lipitor (Atorvastatin Calcium) 40 Mg Tablet 1 Tab PO QHS Aspirin 81 Mg Tab.chew 1 Tab PO DAILY Allergies Allergies: Allergies Coded Allergies Type Severity Reaction Last Updated Verified Sulfa (Sulfonamide Antibiotics) Adverse Reaction Intermediate diarrhea Yes procaine Adverse Reaction Intermediate "DOESN'T WORK ON ME" 03/06/18 Yes ROS Review of System The patient denies any associated fevers, chills, headache, ear pain, rhinorrhea , sore throat, stiff neck, productive cough, chest pain, shortness of breath, back or flank pain, abdominal pain, nausea, vomiting, diarrhea, constipation, dysuria, rash, numbness, weakness, tingling, incontinence, difficulty ambulating, or diaphoresis. Physical Exam Physical Exam General: Well developed, well nourished, no acute distress, well appearing HEENT: Pupils equally round and reactive to light, EOMI, no discharge, normal conjunctiva Neck: Supple, no nuchal rigidity, no JVD, trachea midline, no tenderness Cardiac: RRR, no murmurs, no gallops, no rubs Chest/Lungs: CTAB, no wheeze, no rhonchi, no crackles Abdomen: soft, non-distended, no guarding, no peritoneal signs, non-tender Back: No tenderness Extremities: no edema, pulses intact, non-tender,capillary refill <3 sec bilateral upper and lower extremities, Neuro: Alert and oriented x 4, no focal deficits, normal speech Vitals Vitals: Vital Signs Date Time Temp Pulse Resp B/P (MAP) Pulse Ox O2 Delivery O2 Flow Rate FiO2 03/07/18 11:00 98.0 56 16 166/67 (100) 100 Room Air 98.0 Labs Labs Laboratory Tests Test 03/06/18 15:45 03/06/18 15:55 03/06/18 18:30 03/07/18 04:15 White Blood Count 8.7 x10^3/uL (4.0-11.0) 7.9 x10^3/uL (4.0-11.0) Red Blood Count 4.24 x10^6/uL (3.50-5.40) 3.92 x10^6/uL (3.50-5.40) Hemoglobin 13.9 g/dL (12.0-15.5) 12.9 g/dL (12.0-15.5) Hematocrit 39.2 % (36.0-47.0) 36.6 % (36.0-47.0) Mean Corpuscular Volume 93 fL (79-100) 94 fL (79-100) Mean Corpuscular Hemoglobin 33 pg (25-35) 33 pg (25-35) Mean Corpuscular Hemoglobin Concent 35 g/dL (31-37) 35 g/dL (31-37) Red Cell Distribution Width 14.0 % (11.5-14.5) 13.1 % (11.5-14.5) Platelet Count 232 x10^3/uL (140-400) 168 x10^3/uL (140-400) Neutrophils (%) (Auto) 67 % (31-73) 59 % (31-73) Lymphocytes (%) (Auto) 23 % (24-48) 31 % (24-48) Monocytes (%) (Auto) 7 % (0-9) 8 % (0-9) Eosinophils (%) (Auto) 2 % (0-3) 2 % (0-3) Basophils (%) (Auto) 2 % (0-3) 1 % (0-3) Neutrophils # (Auto) 5.8 x10^3uL (1.8-7.7) 4.7 x10^3uL (1.8-7.7) Lymphocytes # (Auto) 2.0 x10^3/uL (1.0-4.8) 2.5 x10^3/uL (1.0-4.8) Monocytes # (Auto) 0.6 x10^3/uL (0.0-1.1) 0.6 x10^3/uL (0.0-1.1) Eosinophils # (Auto) 0.2 x10^3/uL (0.0-0.7) 0.1 x10^3/uL (0.0-0.7) Basophils # (Auto) 0.1 x10^3/uL (0.0-0.2) 0.0 x10^3/uL (0.0-0.2) Sodium Level 140 mmol/L (136-145) 141 mmol/L (136-145) Potassium Level 3.9 mmol/L (3.5-5.1) 3.6 mmol/L (3.5-5.1) Chloride Level 101 mmol/L (98-107) 107 mmol/L (98-107) Carbon Dioxide Level 29 mmol/L (21-32) 26 mmol/L (21-32) Anion Gap 10 (6-14) 8 (6-14) Blood Urea Nitrogen 34 mg/dL (7-20) 25 mg/dL (7-20) Creatinine 1.7 mg/dL (0.6-1.0) 1.4 mg/dL (0.6-1.0) Estimated GFR (Cockcroft-Gault) 29.1 36.5 BUN/Creatinine Ratio 20 (6-20) Glucose Level 148 mg/dL (70-99) 89 mg/dL (70-99) Calcium Level 9.7 mg/dL (8.5-10.1) 8.4 mg/dL (8.5-10.1) Magnesium Level 2.2 mg/dL (1.8-2.4) Total Bilirubin 1.0 mg/dL (0.2-1.0) Aspartate Amino Transf (AST/SGOT) 66 U/L (15-37) Alanine Aminotransferase (ALT/SGPT) 57 U/L (14-59) Alkaline Phosphatase 81 U/L (46-116) Troponin I Quantitative < 0.017 ng/mL (0.000-0.055) Total Protein 7.1 g/dL (6.4-8.2) Albumin 3.6 g/dL (3.4-5.0) Albumin/Globulin Ratio 1.0 (1.0-1.7) Glucose (Fingerstick) 125 mg/dL (70-99) Urine Collection Type Void Urine Color Yellow Urine Clarity Clear Urine pH 6.5 Urine Specific [place] 1.015 Urine Protein Negative mg/dL (NEG-TRACE) Urine Glucose (UA) Negative mg/dL (NEG) Urine Ketones (Stick) Negative mg/dL (NEG) Urine Blood Negative (NEG) Urine Nitrite Negative (NEG) Urine Bilirubin Negative (NEG) Urine Urobilinogen Dipstick 0.2 mg/dL (0.2 mg/dL) Urine Leukocyte Esterase Large (NEG) Urine RBC Occ /HPF (0-2) Urine WBC 20-40 /HPF (0-4) Urine Squamous Epithelial Cells Many /LPF Urine Bacteria Moderate /HPF (0-FEW) Triglycerides Level 84 mg/dL (0-150) Cholesterol Level 151 mg/dL (0-200) LDL Cholesterol, Calculated 81 mg/dL (0-100) VLDL Cholesterol, Calculated 17 mg/dL (0-40) Non-HDL Cholesterol Calculated 98 mg/dL (0-129) HDL Cholesterol 53 mg/dL (40-60) Cholesterol/HDL Ratio 2.8 Thyroid Stimulating Hormone (TSH) 0.889 uIU/mL (0.358-3.74) Laboratory Tests Test 03/06/18 15:45 03/06/18 15:55 03/06/18 18:30 03/07/18 04:15 White Blood Count 8.7 x10^3/uL (4.0-11.0) 7.9 x10^3/uL (4.0-11.0) Red Blood Count 4.24 x10^6/uL (3.50-5.40) 3.92 x10^6/uL (3.50-5.40) Hemoglobin 13.9 g/dL (12.0-15.5) 12.9 g/dL (12.0-15.5) Hematocrit 39.2 % (36.0-47.0) 36.6 % (36.0-47.0) Mean Corpuscular Volume 93 fL (79-100) 94 fL (79-100) Mean Corpuscular Hemoglobin 33 pg (25-35) 33 pg (25-35) Mean Corpuscular Hemoglobin Concent 35 g/dL (31-37) 35 g/dL (31-37) Red Cell Distribution Width 14.0 % (11.5-14.5) 13.1 % (11.5-14.5) Platelet Count 232 x10^3/uL (140-400) 168 x10^3/uL (140-400) Neutrophils (%) (Auto) 67 % (31-73) 59 % (31-73) Lymphocytes (%) (Auto) 23 % (24-48) 31 % (24-48) Monocytes (%) (Auto) 7 % (0-9) 8 % (0-9) Eosinophils (%) (Auto) 2 % (0-3) 2 % (0-3) Basophils (%) (Auto) 2 % (0-3) 1 % (0-3) Neutrophils # (Auto) 5.8 x10^3uL (1.8-7.7) 4.7 x10^3uL (1.8-7.7) Lymphocytes # (Auto) 2.0 x10^3/uL (1.0-4.8) 2.5 x10^3/uL (1.0-4.8) Monocytes # (Auto) 0.6 x10^3/uL (0.0-1.1) 0.6 x10^3/uL (0.0-1.1) Eosinophils # (Auto) 0.2 x10^3/uL (0.0-0.7) 0.1 x10^3/uL (0.0-0.7) Basophils # (Auto) 0.1 x10^3/uL (0.0-0.2) 0.0 x10^3/uL (0.0-0.2) Sodium Level 140 mmol/L (136-145) 141 mmol/L (136-145) Potassium Level 3.9 mmol/L (3.5-5.1) 3.6 mmol/L (3.5-5.1) Chloride Level 101 mmol/L (98-107) 107 mmol/L (98-107) Carbon Dioxide Level 29 mmol/L (21-32) 26 mmol/L (21-32) Anion Gap 10 (6-14) 8 (6-14) Blood Urea Nitrogen 34 mg/dL (7-20) 25 mg/dL (7-20) Creatinine 1.7 mg/dL (0.6-1.0) 1.4 mg/dL (0.6-1.0) Estimated GFR (Cockcroft-Gault) 29.1 36.5 BUN/Creatinine Ratio 20 (6-20) Glucose Level 148 mg/dL (70-99) 89 mg/dL (70-99) Calcium Level 9.7 mg/dL (8.5-10.1) 8.4 mg/dL (8.5-10.1) Magnesium Level 2.2 mg/dL (1.8-2.4) Total Bilirubin 1.0 mg/dL (0.2-1.0) Aspartate Amino Transf (AST/SGOT) 66 U/L (15-37) Alanine Aminotransferase (ALT/SGPT) 57 U/L (14-59) Alkaline Phosphatase 81 U/L (46-116) Troponin I Quantitative < 0.017 ng/mL (0.000-0.055) Total Protein 7.1 g/dL (6.4-8.2) Albumin 3.6 g/dL (3.4-5.0) Albumin/Globulin Ratio 1.0 (1.0-1.7) Glucose (Fingerstick) 125 mg/dL (70-99) Urine Collection Type Void Urine Color Yellow Urine Clarity Clear Urine pH 6.5 Urine Specific [place] 1.015 Urine Protein Negative mg/dL (NEG-TRACE) Urine Glucose (UA) Negative mg/dL (NEG) Urine Ketones (Stick) Negative mg/dL (NEG) Urine Blood Negative (NEG) Urine Nitrite Negative (NEG) Urine Bilirubin Negative (NEG) Urine Urobilinogen Dipstick 0.2 mg/dL (0.2 mg/dL) Urine Leukocyte Esterase Large (NEG) Urine RBC Occ /HPF (0-2) Urine WBC 20-40 /HPF (0-4) Urine Squamous Epithelial Cells Many /LPF Urine Bacteria Moderate /HPF (0-FEW) Triglycerides Level 84 mg/dL (0-150) Cholesterol Level 151 mg/dL (0-200) LDL Cholesterol, Calculated 81 mg/dL (0-100) VLDL Cholesterol, Calculated 17 mg/dL (0-40) Non-HDL Cholesterol Calculated 98 mg/dL (0-129) HDL Cholesterol 53 mg/dL (40-60) Cholesterol/HDL Ratio 2.8 Thyroid Stimulating Hormone (TSH) 0.889 uIU/mL (0.358-3.74) RAFFY LANE MD Mar 07, 2018 15:52
[2018-03-07] MEDS: LACTOBACILLUS RHAMNOSUS GG 1 CAPSULE. PO SCH (20:13)
[2018-03-07] MEDS: ATORVASTATIN CALCIUM 40 MG TABLET. PO SCH (20:13)
[2018-03-07] MEDS: cefTRIAXone IV Push 1 GM VIAL. IVP SCH (20:14)
--- NOTE | 2018-03-07 21:13 | EKG ---
[facility] [address] [place] [address] Test Date: 2018-03-06 Test Time: 15:35:12 Pat Name: MICKEY YOUSSEF Department: Room: 400 1 Gender: F [employer] Worker: GALEN : 1940 Requested By: DELMA WILBURN Order Number: [id number] Reading MD: Gio Ham Measurements Intervals [place] Rate: 60 P: 90 NV: 178 QRS: 62 QRSD: 76 T: 48 QT: 416 QTc: 420 Interpretive Statements SINUS RHYTHM ATRIAL PREMATURE COMPLEX(ES) Electronically Signed On 03-09-2018 10:56:40 CDT by Gio Ham
[2018-03-07 22:54] LABS: BARBITURATES NEG (NEG); BENZODIAZEPINES NEG (NEG); CANNABINOIDS NEG (NEG); COCAINE NEG (NEG); METHADONE NEG (NEG); OPIATES NEG (NEG); PHENCYCLIDINE NEG (NEG)
[2018-03-07 22:58] LABS: AMPHETAMINE/METHAMPHETAMINE NEG (NEG)
[2018-03-08] VITALS (7 sets, daily range): BP systolic 131–197; BP diastolic 71–102
[2018-03-08] MEDS: LEVOTHYROXINE 88 MCG TABLET PO SCH (07:00)
[2018-03-08 07:19] LABS: CALCIUM 9.7 mg/dL (8.5-10.1); CREATININE 1.2 mg/dL (0.6-1.0); GFR 43.6; POTASSIUM 3.9 mmol/L (3.5-5.1)
[2018-03-08 07:21] LABS: BASO % 0 % (0-3); EOS # 0.1 x10^3/uL (0.0-0.7); EOS % 1 % (0-3); HEMOGLOBIN 13.8 g/dL (12.0-15.5); LYMPH # 2.1 x10^3/uL (1.0-4.8); LYMPH % 21 % (24-48); MEAN CORPUSCULAR HEMOGLOBIN 32 pg (25-35); MEAN CORPUSCULAR HGB CONC 35 g/dL (31-37); MEAN CORPUSCULAR VOLUME 93 fL (79-100); MONO # 0.6 x10^3/uL (0.0-1.1); MONO % 6 % (0-9); NEUT # 7.3 x10^3uL (1.8-7.7); NEUT % 72 % (31-73); PLATELET COUNT 173 x10^3/uL (140-400); RED BLOOD COUNT 4.29 x10^6/uL (3.50-5.40); RED CELL DISTRIBUTION WIDTH 13.1 % (11.5-14.5); WHITE BLOOD COUNT 10.2 x10^3/uL (4.0-11.0)
[2018-03-08] MEDS: CALCIUM CARB/VIT D3 500/200 TABLET. PO SCH ×2 (08:00→17:00)
[2018-03-08] MEDS: ASPIRIN ENTERIC COATED 325 MG TABLET.DR. PO SCH (08:00)
[2018-03-08] MEDS: hydroCHLOROthiazide 12.5 MG CAPSULE PO SCH (09:00)
[2018-03-08] MEDS: ENOXAPARIN 30 MG/0.3 ML SYRINGE. SQ SCH (09:00)
[2018-03-08] MEDS: LACTOBACILLUS RHAMNOSUS GG 1 CAPSULE. PO SCH ×2 (09:00→21:25)
[2018-03-08] MEDS: LISINOPRIL 10 MG TABLET PO SCH (09:00)
[2018-03-08] MEDS: MULTIVITAMIN with MINERAL TABLET. PO SCH (09:00)
[2018-03-08] MEDS: ATENOLOL 25 MG TABLET. PO SCH (09:00)
--- NOTE | 2018-03-08 09:41 | PDOC ---
PROGRESS NOTES Chief Complaint Chief Complaint acute metabolic encephalopathy, CVA symptom left side weakness resolved possible UTI wo symptom she had recent Echo and CV outpatient appt for prior "irreg heart beat" hypothyroidism MIQUEL, vasomotor ckd3 History of Present Illness History of Present Illness Neurology is following. We are awaiting brain MRI results at this time.CT of head in ED prior to admission was negative. Pt seen & examined. Pt alert & oriented; affect appropriate VSS DW nursing Vitals Vitals Vital Signs Date Time Temp Pulse Resp B/P (MAP) Pulse Ox O2 Delivery O2 Flow Rate FiO2 03/08/18 09:00 66 197/102 03/08/18 08:00 Room Air 03/08/18 07:00 98.0 18 94 98.0 Physical Exam General: Alert, Cooperative, No acute distress, Other (oriented, but some confusion, family reports she is not fully herself) Heart: Regular rate, Normal S1, Normal S2 Lungs: Clear Abdomen: Normal bowel sounds, Soft Extremities: No cyanosis Skin: No rashes Labs LABS Laboratory Tests Test 03/07/18 22:15 03/08/18 04:45 Urine Opiates Screen Neg (NEG) Urine Methadone Screen Neg (NEG) Urine Barbiturates Neg (NEG) Urine Phencyclidine Screen Neg (NEG) Urine Amphetamine/Methamphetamine Neg (NEG) Urine Benzodiazepines Screen Neg (NEG) Urine Cocaine Screen Neg (NEG) Urine Cannabinoids Screen Neg (NEG) Urine Ethyl Alcohol Neg (NEG) White Blood Count 10.2 x10^3/uL (4.0-11.0) Red Blood Count 4.29 x10^6/uL (3.50-5.40) Hemoglobin 13.8 g/dL (12.0-15.5) Hematocrit 40.0 % (36.0-47.0) Mean Corpuscular Volume 93 fL (79-100) Mean Corpuscular Hemoglobin 32 pg (25-35) Mean Corpuscular Hemoglobin Concent 35 g/dL (31-37) Red Cell Distribution Width 13.1 % (11.5-14.5) Platelet Count 173 x10^3/uL (140-400) Neutrophils (%) (Auto) 72 % (31-73) Lymphocytes (%) (Auto) 21 % (24-48) Monocytes (%) (Auto) 6 % (0-9) Eosinophils (%) (Auto) 1 % (0-3) Basophils (%) (Auto) 0 % (0-3) Neutrophils # (Auto) 7.3 x10^3uL (1.8-7.7) Lymphocytes # (Auto) 2.1 x10^3/uL (1.0-4.8) Monocytes # (Auto) 0.6 x10^3/uL (0.0-1.1) Eosinophils # (Auto) 0.1 x10^3/uL (0.0-0.7) Basophils # (Auto) 0.0 x10^3/uL (0.0-0.2) Sodium Level 139 mmol/L (136-145) Potassium Level 3.9 mmol/L (3.5-5.1) Chloride Level 103 mmol/L (98-107) Carbon Dioxide Level 25 mmol/L (21-32) Anion Gap 11 (6-14) Blood Urea Nitrogen 19 mg/dL (7-20) Creatinine 1.2 mg/dL (0.6-1.0) Estimated GFR (Cockcroft-Gault) 43.6 Glucose Level 88 mg/dL (70-99) Calcium Level 9.7 mg/dL (8.5-10.1) Review of Systems Review of Systems Denies angina, denies weakness. Assessment and Plan Assessmemt and Plan Problems Medical Problems: (1) Near syncope Status: Acute Plan: Discussed with Dr. Sauceda, appreciate input Awaiting brain MRI results Increase ASA Continue cardiac monitoring Continue home medications Probable discharge later today Comment Review of Relevant I have reviewed the following items cassandra (where applicable) has been applied. Labs Laboratory Tests Test 03/06/18 15:45 03/06/18 15:55 03/06/18 18:30 03/07/18 04:15 White Blood Count 8.7 x10^3/uL (4.0-11.0) 7.9 x10^3/uL (4.0-11.0) Red Blood Count 4.24 x10^6/uL (3.50-5.40) 3.92 x10^6/uL (3.50-5.40) Hemoglobin 13.9 g/dL (12.0-15.5) 12.9 g/dL (12.0-15.5) Hematocrit 39.2 % (36.0-47.0) 36.6 % (36.0-47.0) Mean Corpuscular Volume 93 fL (79-100) 94 fL (79-100) Mean Corpuscular Hemoglobin 33 pg (25-35) 33 pg (25-35) Mean Corpuscular Hemoglobin Concent 35 g/dL (31-37) 35 g/dL (31-37) Red Cell Distribution Width 14.0 % (11.5-14.5) 13.1 % (11.5-14.5) Platelet Count 232 x10^3/uL (140-400) 168 x10^3/uL (140-400) Neutrophils (%) (Auto) 67 % (31-73) 59 % (31-73) Lymphocytes (%) (Auto) 23 % (24-48) 31 % (24-48) Monocytes (%) (Auto) 7 % (0-9) 8 % (0-9) Eosinophils (%) (Auto) 2 % (0-3) 2 % (0-3) Basophils (%) (Auto) 2 % (0-3) 1 % (0-3) Neutrophils # (Auto) 5.8 x10^3uL (1.8-7.7) 4.7 x10^3uL (1.8-7.7) Lymphocytes # (Auto) 2.0 x10^3/uL (1.0-4.8) 2.5 x10^3/uL (1.0-4.8) Monocytes # (Auto) 0.6 x10^3/uL (0.0-1.1) 0.6 x10^3/uL (0.0-1.1) Eosinophils # (Auto) 0.2 x10^3/uL (0.0-0.7) 0.1 x10^3/uL (0.0-0.7) Basophils # (Auto) 0.1 x10^3/uL (0.0-0.2) 0.0 x10^3/uL (0.0-0.2) Sodium Level 140 mmol/L (136-145) 141 mmol/L (136-145) Potassium Level 3.9 mmol/L (3.5-5.1) 3.6 mmol/L (3.5-5.1) Chloride Level 101 mmol/L (98-107) 107 mmol/L (98-107) Carbon Dioxide Level 29 mmol/L (21-32) 26 mmol/L (21-32) Anion Gap 10 (6-14) 8 (6-14) Blood Urea Nitrogen 34 mg/dL (7-20) 25 mg/dL (7-20) Creatinine 1.7 mg/dL (0.6-1.0) 1.4 mg/dL (0.6-1.0) Estimated GFR (Cockcroft-Gault) 29.1 36.5 BUN/Creatinine Ratio 20 (6-20) Glucose Level 148 mg/dL (70-99) 89 mg/dL (70-99) Calcium Level 9.7 mg/dL (8.5-10.1) 8.4 mg/dL (8.5-10.1) Magnesium Level 2.2 mg/dL (1.8-2.4) Total Bilirubin 1.0 mg/dL (0.2-1.0) Aspartate Amino Transf (AST/SGOT) 66 U/L (15-37) Alanine Aminotransferase (ALT/SGPT) 57 U/L (14-59) Alkaline Phosphatase 81 U/L (46-116) Troponin I Quantitative < 0.017 ng/mL (0.000-0.055) Total Protein 7.1 g/dL (6.4-8.2) Albumin 3.6 g/dL (3.4-5.0) Albumin/Globulin Ratio 1.0 (1.0-1.7) Glucose (Fingerstick) 125 mg/dL (70-99) Urine Collection Type Void Urine Color Yellow Urine Clarity Clear Urine pH 6.5 Urine Specific [place] 1.015 Urine Protein Negative mg/dL (NEG-TRACE) Urine Glucose (UA) Negative mg/dL (NEG) Urine Ketones (Stick) Negative mg/dL (NEG) Urine Blood Negative (NEG) Urine Nitrite Negative (NEG) Urine Bilirubin Negative (NEG) Urine Urobilinogen Dipstick 0.2 mg/dL (0.2 mg/dL) Urine Leukocyte Esterase Large (NEG) Urine RBC Occ /HPF (0-2) Urine WBC 20-40 /HPF (0-4) Urine Squamous Epithelial Cells Many /LPF Urine Bacteria Moderate /HPF (0-FEW) Triglycerides Level 84 mg/dL (0-150) Cholesterol Level 151 mg/dL (0-200) LDL Cholesterol, Calculated 81 mg/dL (0-100) VLDL Cholesterol, Calculated 17 mg/dL (0-40) Non-HDL Cholesterol Calculated 98 mg/dL (0-129) HDL Cholesterol 53 mg/dL (40-60) Cholesterol/HDL Ratio 2.8 Thyroid Stimulating Hormone (TSH) 0.889 uIU/mL (0.358-3.74) Test 03/07/18 22:15 03/08/18 04:45 Urine Opiates Screen Neg (NEG) Urine Methadone Screen Neg (NEG) Urine Barbiturates Neg (NEG) Urine Phencyclidine Screen Neg (NEG) Urine Amphetamine/Methamphetamine Neg (NEG) Urine Benzodiazepines Screen Neg (NEG) Urine Cocaine Screen Neg (NEG) Urine Cannabinoids Screen Neg (NEG) Urine Ethyl Alcohol Neg (NEG) White Blood Count 10.2 x10^3/uL (4.0-11.0) Red Blood Count 4.29 x10^6/uL (3.50-5.40) Hemoglobin 13.8 g/dL (12.0-15.5) Hematocrit 40.0 % (36.0-47.0) Mean Corpuscular Volume 93 fL (79-100) Mean Corpuscular Hemoglobin 32 pg (25-35) Mean Corpuscular Hemoglobin Concent 35 g/dL (31-37) Red Cell Distribution Width 13.1 % (11.5-14.5) Platelet Count 173 x10^3/uL (140-400) Neutrophils (%) (Auto) 72 % (31-73) Lymphocytes (%) (Auto) 21 % (24-48) Monocytes (%) (Auto) 6 % (0-9) Eosinophils (%) (Auto) 1 % (0-3) Basophils (%) (Auto) 0 % (0-3) Neutrophils # (Auto) 7.3 x10^3uL (1.8-7.7) Lymphocytes # (Auto) 2.1 x10^3/uL (1.0-4.8) Monocytes # (Auto) 0.6 x10^3/uL (0.0-1.1) Eosinophils # (Auto) 0.1 x10^3/uL (0.0-0.7) Basophils # (Auto) 0.0 x10^3/uL (0.0-0.2) Sodium Level 139 mmol/L (136-145) Potassium Level 3.9 mmol/L (3.5-5.1) Chloride Level 103 mmol/L (98-107) Carbon Dioxide Level 25 mmol/L (21-32) Anion Gap 11 (6-14) Blood Urea Nitrogen 19 mg/dL (7-20) Creatinine 1.2 mg/dL (0.6-1.0) Estimated GFR (Cockcroft-Gault) 43.6 Glucose Level 88 mg/dL (70-99) Calcium Level 9.7 mg/dL (8.5-10.1) Laboratory Tests Test 03/07/18 22:15 03/08/18 04:45 Urine Opiates Screen Neg (NEG) Urine Methadone Screen Neg (NEG) Urine Barbiturates Neg (NEG) Urine Phencyclidine Screen Neg (NEG) Urine Amphetamine/Methamphetamine Neg (NEG) Urine Benzodiazepines Screen Neg (NEG) Urine Cocaine Screen Neg (NEG) Urine Cannabinoids Screen Neg (NEG) Urine Ethyl Alcohol Neg (NEG) White Blood Count 10.2 x10^3/uL (4.0-11.0) Red Blood Count 4.29 x10^6/uL (3.50-5.40) Hemoglobin 13.8 g/dL (12.0-15.5) Hematocrit 40.0 % (36.0-47.0) Mean Corpuscular Volume 93 fL (79-100) Mean Corpuscular Hemoglobin 32 pg (25-35) Mean Corpuscular Hemoglobin Concent 35 g/dL (31-37) Red Cell Distribution Width 13.1 % (11.5-14.5) Platelet Count 173 x10^3/uL (140-400) Neutrophils (%) (Auto) 72 % (31-73) Lymphocytes (%) (Auto) 21 % (24-48) Monocytes (%) (Auto) 6 % (0-9) Eosinophils (%) (Auto) 1 % (0-3) Basophils (%) (Auto) 0 % (0-3) Neutrophils # (Auto) 7.3 x10^3uL (1.8-7.7) Lymphocytes # (Auto) 2.1 x10^3/uL (1.0-4.8) Monocytes # (Auto) 0.6 x10^3/uL (0.0-1.1) Eosinophils # (Auto) 0.1 x10^3/uL (0.0-0.7) Basophils # (Auto) 0.0 x10^3/uL (0.0-0.2) Sodium Level 139 mmol/L (136-145) Potassium Level 3.9 mmol/L (3.5-5.1) Chloride Level 103 mmol/L (98-107) Carbon Dioxide Level 25 mmol/L (21-32) Anion Gap 11 (6-14) Blood Urea Nitrogen 19 mg/dL (7-20) Creatinine 1.2 mg/dL (0.6-1.0) Estimated GFR (Cockcroft-Gault) 43.6 Glucose Level 88 mg/dL (70-99) Calcium Level 9.7 mg/dL (8.5-10.1) Medications Current Medications Sodium Chloride 500 ml @ 500 mls/hr Q1H IV Last administered on 03/06/18at 16: 17; Start 03/06/18 at 15:45; Stop 03/06/18 at 16:18; Status DC Sodium Chloride 1,000 ml @ 1,000 mls/hr 1X ONCE IV Last administered on at 17:55; Start 03/06/18 at 17:30; Stop 03/06/18 at 18:29; Status DC Ondansetron HCl (Zofran) 4 mg PRN Q8HRS PRN IV NAUSEA/VOMITING; Start 03/06/18 at 18:30; Stop 03/07/18 at 18:29; Status DC Morphine Sulfate (Morphine Sulfate) 4 mg PRN Q2HR PRN IV PAIN; Start 03/06/18 at 18:30; Stop 03/07/18 at 18:29; Status DC Fentanyl Citrate (Fentanyl 2ml Vial) 50 mcg PRN Q2HR PRN IV PAIN; Start at 18:30; Stop 03/07/18 at 18:29; Status DC Sodium Chloride 1,000 ml @ 125 mls/hr Q8H IV Last administered on 03/07/18at 16 :03; Start 03/06/18 at 18:27; Stop 03/07/18 at 18:26; Status DC Acetaminophen (Tylenol) 650 mg PRN Q4HRS PRN PO FEVER; Start 03/06/18 at 18:30 ; Stop 03/07/18 at 18:29; Status DC Ceftriaxone Sodium 1 gm/ Dextrose 50 ml @ 100 mls/hr Q24H IV ; Start 03/06/18 at 20:00; Status UNV Enoxaparin Sodium (Lovenox Per Pharmacy Prophylaxis Dosing) 1 each PRN DAILY PRN MC SEE COMMENTS; Start 03/06/18 at 20:00 Aspirin (Ecotrin) 325 mg 1X ONCE PO Last administered on 03/06/18at 21:02; Start 03/06/18 at 20:00; Stop 03/06/18 at 20:01; Status DC Aspirin (Ecotrin) 325 mg DAILYWBKFT PO Last administered on 03/08/18at 08:00; Start 03/07/18 at 08:00 Ceftriaxone Sodium (Rocephin) 1 gm QHS IVP Last administered on 03/07/18 20:14 ; Start 03/06/18 at 19:52 Atorvastatin Calcium (Lipitor) 40 mg QHS PO Last administered on 03/07/18at 20: 13; Start 03/06/18 at 21:00 Levothyroxine Sodium (Synthroid) 88 mcg DAILY07 PO Last administered on 07:00; Start 03/07/18 at 07:00 Atenolol (Tenormin) 25 mg DAILY PO Last administered on 03/08/18 09:00; Start 03/07/18 at 09:00 Calcium/Vitamin D (Oscal D 500mg/ 200uts) 1 tab BIDWMEALS PO Last administered on 03/08/18 08:00; Start 03/07/18 at 08:00 Lisinopril (Prinivil) 10 mg DAILY PO Last administered on 03/08/18 09:00; Start 03/07/18 at 09:00 Multivitamins (Thera M Plus) 1 tab DAILY PO Last administered on 03/08/18 09: 00; Start 03/07/18 at 09:00 Enoxaparin Sodium (Lovenox 30mg Syringe) 30 mg DAILY SQ Last administered on 09:00; Start 03/07/18 at 09:00 Hydrochlorothiazide (Microzide) 12.5 mg DAILY PO Last administered on 9/24/ 18at 09:00; Start 03/07/18 at 09:00 Info (Do NOT chart on this placeholder) 1 each 1X ONCE MC ; Start 03/07/18 at 09:00; Stop 03/07/18 at 09:01; Status UNV Influenza Virus Vaccine (Afluria Trivalent [id number] Syringe) 0.5 ml ONCE ONCE VAX IM Last administered on 03/07/18at 16:07; Start 03/07/18 at 09:00; Stop at 09:01; Status DC Lactobacillus Rhamnosus (Culturelle) 1 cap BID PO Last administered on at 09:00; Start 03/07/18 at 21:00 Active Scripts Active Reported Atenolol 25 Mg Tablet 1 Tab PO DAILY Lisinopril-Hctz 10-12.5 Mg Tab (Lisinopril/Hydrochlorothiazide) 1 Each Tablet 1 Tab PO DAILY Levothyroxine Sodium 88 Mcg Tablet 1 Tab PO DAILY Multi-Vitamin Daily (Multivitamin) 1 Each Tablet 1 Each PO DAILY Caltrate 600 + D Tablet (Calcium Carbonate/Vitamin D3) 1 Each Tablet 1 Each PO BID Fish Oil 1,000 Mg Capsule (Butler-3 Fatty Acids/Fish Oil) 1 Each Capsule 1 Each PO BID Lipitor (Atorvastatin Calcium) 40 Mg Tablet 1 Tab PO QHS Aspirin 81 Mg Tab.chew 1 Tab PO DAILY Vitals/I & O Vital Sign - Last 24 Hours 03/07/18 03/07/18 03/07/18 03/07/18 11:00 15:00 17:30 17:35 Temp 98.0 98.0 98.0 98.0 Pulse 56 52 67 75 Resp 16 16 16 16 B/P (MAP) 166/67 (100) 123/57 (79) 136/70 (92) 143/75 (97) Pulse Ox 100 100 93 90 O2 Delivery Room Air Room Air Room Air Room Air 03/07/18 03/07/18 03/07/18 03/07/18 17:40 17:46 19:00 20:00 Temp 98.5 98.5 Pulse 70 72 Resp 16 18 B/P (MAP) 152/71 (98) 166/86 (112) 166/79 (108) Pulse Ox 90 94 O2 Delivery Room Air Room Air Room Air 03/07/18 03/08/18 03/08/1818 22:48 03:00 07:00 07:05 Temp 98.7 99.5 98.0 98.7 99.5 98.0 Pulse 75 66 66 Resp 18 18 18 B/P (MAP) 136/66 (89) 158/71 (100) 188/100 (129) 197/102 (133) Pulse Ox 90 91 94 O2 Delivery Room Air Room Air Room Air 03/08/18 03/08/18 03/08/18 08:00 09:00 09:00 Pulse 66 66 B/P (MAP) 197/102 197/102 O2 Delivery Room Air DWIGHT SUNG III DO Mar 08, 2018 09:41
--- NOTE | 2018-03-08 10:15 | RAD ---
MRI of the brain without contrast 03/07/2018 Clinical History: New onset of left-sided weakness and near syncope. Technique: Unenhanced T1-weighted sagittal and axial, T2-weighted axial and coronal and FLAIR, gradient echo and diffusion-weighted axial images of the brain were obtained. Findings: Comparison is made to a CT scan of the head dated 03/06/2018. There is generalized parenchymal atrophy. Patchy and several small scattered areas of increased signal intensity are seen within the periventricular and subcortical white matter of both cerebral hemispheres on the FLAIR and T2-weighted images consistent with areas of mild small vessel ischemic disease. A 2.5 mm rounded area of decreased signal intensity is seen involving the right parietal lobe on the gradient echo images. 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 There is no surrounding edema or associated mass effect. No acute parenchymal abnormality is seen. No extra-axial fluid collection is seen. There is no MRI evidence of acute ischemia/infarction. Mild mucosal thickening in seen scattered throughout the paranasal sinuses. Normal flow voids are seen within the major vascular structures surrounding the brain parenchyma. Impression: No acute parenchymal abnormality is seen. Electronically signed by: Isaias Mota MD (03/08/2018 10:11 AM) [id number]
--- NOTE | 2018-03-08 10:46 | CARD ---
MR#: [id number] Date of Study: 03/08/2018 Ordering Physician: RAFFY LANE, Referring Physician: KALIN PABON Tech: Krista Mcelroy RDCS APPROVED REPORT EXAM: Two-dimensional and M-mode echocardiogram with Doppler and color Doppler. Other Information Quality : Good INDICATION CVA/TIA Echo Enhancing Agent Agent/Amount Used: Agitated Saline 8mL 2D DIMENSIONS RVDd2.1 (2.9-3.5cm)Left Atrium(2D)3.8 (1.6-4.0cm) IVSd0.9 (0.7-1.1cm)Aortic Root(2D)2.7 (2.0-3.7cm) LVDd4.2 (3.9-5.9cm)LVOT Diameter2.0 (1.8-2.4cm) PWd0.9 (0.7-1.1cm)LVDs2.2 (2.5-4.0cm) FS (%) 30.0 %SV64.9 ml LVEF(%)60.0 (>50%) Aortic Valve AoV Peak Dequan.145.0cm/sAoV VTI31.9cm AO Peak GR.8.4mmHgLVOT Peak Dequan.95.3cm/s LVOT VTI 19.41cmAO Mean GR.5mmHg KARMEN (VMAX)1.69ng0CVU (VTI)1.84cm2 Mitral Valve MV E Sreuxdjb430.5cm/sMV E Peak Gr.196mmHg MV DECEL [id number] A Fjqwghar10.6cm/s MV ELL88haU/A Ratio3.1 MVA (PHT)6.43cm2 TDI E/Lateral E'35.9E/Medial E'33.8 Tricuspid Valve TR P. Clvioxwe523uc/sRAP YNMHPRMF0nrIe TR Peak Gr.40sfQpPKBS48fkFr Pulmonary Vein S1 Hhebetyl69.3cm/sD2 Cxuauirw78.9cm/s LEFT VENTRICLE The left ventricle is normal size. There is normal left ventricular wall thickness. The left ventricu lar systolic function is normal. The Ejection Fraction is 55-60%. There is normal LV segmental wall m otion. RIGHT VENTRICLE The right ventricle is normal size. The right ventricular systolic function is normal. ATRIA The left atrium size is normal. The right atrium size is normal. The interatrial septum is intact wit h no evidence for an atrial septal defect or patent foramen ovale as noted on 2-D or Doppler imaging. Injection of bubbles documented no interatrial shunt. AORTIC VALVE The aortic valve is calcified but opens well. Doppler and Color Flow revealed trace aortic regurgitat ion. There is no significant aortic valvular stenosis. MITRAL VALVE The mitral valve is calcified but opens well. There is no evidence of mitral valve prolapse. There is no mitral valve stenosis. Doppler and Color-flow revealed moderate mitral regurgitation. TRICUSPID VALVE The tricuspid valve is normal in structure and function. Doppler and Color Flow revealed moderate tri cuspid regurgitation. There is moderate pulmonary hypertension. The PA pressure was estimated at 58 m mHg. There is no tricuspid valve stenosis. PULMONIC VALVE The pulmonic valve is not well visualized. Doppler and Color Flow revealed trace pulmonic valvular re gurgitation. There is no pulmonic valvular stenosis. GREAT VESSELS The aortic root is normal in size. The ascending aorta is normal in size. The IVC is normal in size a nd collapses >50% with inspiration. PERICARDIAL EFFUSION There is no evidence of significant pericardial effusion. Critical Notification Critical Value: No <Conclusion> The left ventricular systolic function is normal. The Ejection Fraction is 55-60%. There is normal LV segmental wall motion. Moderate mitral regurgitation. Moderate tricuspid regurgitation. There is moderate pulmonary hypertension. The PA pressure was estimated at 58 mmHg. There is no evidence of significant pericardial effusion. Signed by : Gio Ham, Electronically Approved : 03/08/2018 10:45:27
[2018-03-08] MEDS: amLODIPine BESYLATE 5 MG TABLET PO SCH (11:30)
--- NOTE | 2018-03-08 11:55 | PDOC ---
PROGRESS NOTES Assessment Problems Medical Problems: (1) Near syncope Status: Acute TIA with dizziness, near syncope, left sided heaviness, diplopia and blurred vision. UTI. HTN. HLD. Renal insufficiency. Hyperthyroidism. Cardiac arrhythmia. Longstanding history of smoking. Plan ASA increased to 325 mg daily. No need to change Lipitor dose. Okay for discharge Stroke education offered Follow-up with primary physician for risk-factor management Follow-up with neurology as needed Discussed with patient and daughter Subjective No complaints, no further neurological symptoms Objective Vital Signs Date Time Temp Pulse Resp B/P (MAP) Pulse Ox O2 Delivery O2 Flow Rate FiO2 03/08/18 11:30 60 183/89 03/08/18 11:00 98.2 16 95 Room Air 98.2 PHYSICAL EXAM Alert. Oriented to time, place and person. PERRL. EOMI. CN: no focal findings. Muscle tone: normal. Muscle strength: 5/5 DTR: 2+ Plantar reflex: flexor Gait: a little unsteady, normal for age. Sensory exam: no abnormal findings. No cerebellar signs elicited. Review of Relevant I have reviewed the following items cassandra (where applicable) has been applied. Labs Laboratory Tests Test 03/06/18 15:45 03/06/18 15:55 03/06/18 18:30 03/07/18 04:15 White Blood Count 8.7 x10^3/uL (4.0-11.0) 7.9 x10^3/uL (4.0-11.0) Red Blood Count 4.24 x10^6/uL (3.50-5.40) 3.92 x10^6/uL (3.50-5.40) Hemoglobin 13.9 g/dL (12.0-15.5) 12.9 g/dL (12.0-15.5) Hematocrit 39.2 % (36.0-47.0) 36.6 % (36.0-47.0) Mean Corpuscular Volume 93 fL (79-100) 94 fL (79-100) Mean Corpuscular Hemoglobin 33 pg (25-35) 33 pg (25-35) Mean Corpuscular Hemoglobin Concent 35 g/dL (31-37) 35 g/dL (31-37) Red Cell Distribution Width 14.0 % (11.5-14.5) 13.1 % (11.5-14.5) Platelet Count 232 x10^3/uL (140-400) 168 x10^3/uL (140-400) Neutrophils (%) (Auto) 67 % (31-73) 59 % (31-73) Lymphocytes (%) (Auto) 23 % (24-48) 31 % (24-48) Monocytes (%) (Auto) 7 % (0-9) 8 % (0-9) Eosinophils (%) (Auto) 2 % (0-3) 2 % (0-3) Basophils (%) (Auto) 2 % (0-3) 1 % (0-3) Neutrophils # (Auto) 5.8 x10^3uL (1.8-7.7) 4.7 x10^3uL (1.8-7.7) Lymphocytes # (Auto) 2.0 x10^3/uL (1.0-4.8) 2.5 x10^3/uL (1.0-4.8) Monocytes # (Auto) 0.6 x10^3/uL (0.0-1.1) 0.6 x10^3/uL (0.0-1.1) Eosinophils # (Auto) 0.2 x10^3/uL (0.0-0.7) 0.1 x10^3/uL (0.0-0.7) Basophils # (Auto) 0.1 x10^3/uL (0.0-0.2) 0.0 x10^3/uL (0.0-0.2) Sodium Level 140 mmol/L (136-145) 141 mmol/L (136-145) Potassium Level 3.9 mmol/L (3.5-5.1) 3.6 mmol/L (3.5-5.1) Chloride Level 101 mmol/L (98-107) 107 mmol/L (98-107) Carbon Dioxide Level 29 mmol/L (21-32) 26 mmol/L (21-32) Anion Gap 10 (6-14) 8 (6-14) Blood Urea Nitrogen 34 mg/dL (7-20) 25 mg/dL (7-20) Creatinine 1.7 mg/dL (0.6-1.0) 1.4 mg/dL (0.6-1.0) Estimated GFR (Cockcroft-Gault) 29.1 36.5 BUN/Creatinine Ratio 20 (6-20) Glucose Level 148 mg/dL (70-99) 89 mg/dL (70-99) Calcium Level 9.7 mg/dL (8.5-10.1) 8.4 mg/dL (8.5-10.1) Magnesium Level 2.2 mg/dL (1.8-2.4) Total Bilirubin 1.0 mg/dL (0.2-1.0) Aspartate Amino Transf (AST/SGOT) 66 U/L (15-37) Alanine Aminotransferase (ALT/SGPT) 57 U/L (14-59) Alkaline Phosphatase 81 U/L (46-116) Troponin I Quantitative < 0.017 ng/mL (0.000-0.055) Total Protein 7.1 g/dL (6.4-8.2) Albumin 3.6 g/dL (3.4-5.0) Albumin/Globulin Ratio 1.0 (1.0-1.7) Glucose (Fingerstick) 125 mg/dL (70-99) Urine Collection Type Void Urine Color Yellow Urine Clarity Clear Urine pH 6.5 Urine Specific [place] 1.015 Urine Protein Negative mg/dL (NEG-TRACE) Urine Glucose (UA) Negative mg/dL (NEG) Urine Ketones (Stick) Negative mg/dL (NEG) Urine Blood Negative (NEG) Urine Nitrite Negative (NEG) Urine Bilirubin Negative (NEG) Urine Urobilinogen Dipstick 0.2 mg/dL (0.2 mg/dL) Urine Leukocyte Esterase Large (NEG) Urine RBC Occ /HPF (0-2) Urine WBC 20-40 /HPF (0-4) Urine Squamous Epithelial Cells Many /LPF Urine Bacteria Moderate /HPF (0-FEW) Triglycerides Level 84 mg/dL (0-150) Cholesterol Level 151 mg/dL (0-200) LDL Cholesterol, Calculated 81 mg/dL (0-100) VLDL Cholesterol, Calculated 17 mg/dL (0-40) Non-HDL Cholesterol Calculated 98 mg/dL (0-129) HDL Cholesterol 53 mg/dL (40-60) Cholesterol/HDL Ratio 2.8 Thyroid Stimulating Hormone (TSH) 0.889 uIU/mL (0.358-3.74) Test 03/07/18 22:15 9/24/18 04:45 Urine Opiates Screen Neg (NEG) Urine Methadone Screen Neg (NEG) Urine Barbiturates Neg (NEG) Urine Phencyclidine Screen Neg (NEG) Urine Amphetamine/Methamphetamine Neg (NEG) Urine Benzodiazepines Screen Neg (NEG) Urine Cocaine Screen Neg (NEG) Urine Cannabinoids Screen Neg (NEG) Urine Ethyl Alcohol Neg (NEG) White Blood Count 10.2 x10^3/uL (4.0-11.0) Red Blood Count 4.29 x10^6/uL (3.50-5.40) Hemoglobin 13.8 g/dL (12.0-15.5) Hematocrit 40.0 % (36.0-47.0) Mean Corpuscular Volume 93 fL (79-100) Mean Corpuscular Hemoglobin 32 pg (25-35) Mean Corpuscular Hemoglobin Concent 35 g/dL (31-37) Red Cell Distribution Width 13.1 % (11.5-14.5) Platelet Count 173 x10^3/uL (140-400) Neutrophils (%) (Auto) 72 % (31-73) Lymphocytes (%) (Auto) 21 % (24-48) Monocytes (%) (Auto) 6 % (0-9) Eosinophils (%) (Auto) 1 % (0-3) Basophils (%) (Auto) 0 % (0-3) Neutrophils # (Auto) 7.3 x10^3uL (1.8-7.7) Lymphocytes # (Auto) 2.1 x10^3/uL (1.0-4.8) Monocytes # (Auto) 0.6 x10^3/uL (0.0-1.1) Eosinophils # (Auto) 0.1 x10^3/uL (0.0-0.7) Basophils # (Auto) 0.0 x10^3/uL (0.0-0.2) Sodium Level 139 mmol/L (136-145) Potassium Level 3.9 mmol/L (3.5-5.1) Chloride Level 103 mmol/L (98-107) Carbon Dioxide Level 25 mmol/L (21-32) Anion Gap 11 (6-14) Blood Urea Nitrogen 19 mg/dL (7-20) Creatinine 1.2 mg/dL (0.6-1.0) Estimated GFR (Cockcroft-Gault) 43.6 Glucose Level 88 mg/dL (70-99) Calcium Level 9.7 mg/dL (8.5-10.1) Laboratory Tests Test 03/07/18 22:15 03/08/18 04:45 Urine Opiates Screen Neg (NEG) Urine Methadone Screen Neg (NEG) Urine Barbiturates Neg (NEG) Urine Phencyclidine Screen Neg (NEG) Urine Amphetamine/Methamphetamine Neg (NEG) Urine Benzodiazepines Screen Neg (NEG) Urine Cocaine Screen Neg (NEG) Urine Cannabinoids Screen Neg (NEG) Urine Ethyl Alcohol Neg (NEG) White Blood Count 10.2 x10^3/uL (4.0-11.0) Red Blood Count 4.29 x10^6/uL (3.50-5.40) Hemoglobin 13.8 g/dL (12.0-15.5) Hematocrit 40.0 % (36.0-47.0) Mean Corpuscular Volume 93 fL (79-100) Mean Corpuscular Hemoglobin 32 pg (25-35) Mean Corpuscular Hemoglobin Concent 35 g/dL (31-37) Red Cell Distribution Width 13.1 % (11.5-14.5) Platelet Count 173 x10^3/uL (140-400) Neutrophils (%) (Auto) 72 % (31-73) Lymphocytes (%) (Auto) 21 % (24-48) Monocytes (%) (Auto) 6 % (0-9) Eosinophils (%) (Auto) 1 % (0-3) Basophils (%) (Auto) 0 % (0-3) Neutrophils # (Auto) 7.3 x10^3uL (1.8-7.7) Lymphocytes # (Auto) 2.1 x10^3/uL (1.0-4.8) Monocytes # (Auto) 0.6 x10^3/uL (0.0-1.1) Eosinophils # (Auto) 0.1 x10^3/uL (0.0-0.7) Basophils # (Auto) 0.0 x10^3/uL (0.0-0.2) Sodium Level 139 mmol/L (136-145) Potassium Level 3.9 mmol/L (3.5-5.1) Chloride Level 103 mmol/L (98-107) Carbon Dioxide Level 25 mmol/L (21-32) Anion Gap 11 (6-14) Blood Urea Nitrogen 19 mg/dL (7-20) Creatinine 1.2 mg/dL (0.6-1.0) Estimated GFR (Cockcroft-Gault) 43.6 Glucose Level 88 mg/dL (70-99) Calcium Level 9.7 mg/dL (8.5-10.1) Medications Current Medications Sodium Chloride 500 ml @ 500 mls/hr Q1H IV Last administered on 03/06/18at 16: 17; Start 03/06/18 at 15:45; Stop 03/06/18 at 16:18; Status DC Sodium Chloride 1,000 ml @ 1,000 mls/hr 1X ONCE IV Last administered on at 17:55; Start 03/06/18 at 17:30; Stop 03/06/18 at 18:29; Status DC Ondansetron HCl (Zofran) 4 mg PRN Q8HRS PRN IV NAUSEA/VOMITING; Start 03/06/18 at 18:30; Stop 03/07/18 at 18:29; Status DC Morphine Sulfate (Morphine Sulfate) 4 mg PRN Q2HR PRN IV PAIN; Start 03/06/18 at 18:30; Stop 03/07/18 at 18:29; Status DC Fentanyl Citrate (Fentanyl 2ml Vial) 50 mcg PRN Q2HR PRN IV PAIN; Start at 18:30; Stop 03/07/18 at 18:29; Status DC Sodium Chloride 1,000 ml @ 125 mls/hr Q8H IV Last administered on 03/07/18at 16 :03; Start 03/06/18 at 18:27; Stop 03/07/18 at 18:26; Status DC Acetaminophen (Tylenol) 650 mg PRN Q4HRS PRN PO FEVER; Start 03/06/18 at 18:30 ; Stop 03/07/18 at 18:29; Status DC Ceftriaxone Sodium 1 gm/ Dextrose 50 ml @ 100 mls/hr Q24H IV ; Start 03/06/18 at 20:00; Status UNV Enoxaparin Sodium (Lovenox Per Pharmacy Prophylaxis Dosing) 1 each PRN DAILY PRN MC SEE COMMENTS; Start 03/06/18 at 20:00 Aspirin (Ecotrin) 325 mg 1X ONCE PO Last administered on 03/06/18 21:02; Start 03/06/18 at 20:00; Stop 03/06/18 at 20:01; Status DC Aspirin (Ecotrin) 325 mg DAILYWBKFT PO Last administered on 03/08/18at 08:00; Start 03/07/18 at 08:00 Ceftriaxone Sodium (Rocephin) 1 gm QHS IVP Last administered on 03/07/18 20:14 ; Start 03/06/18 at 19:52 Atorvastatin Calcium (Lipitor) 40 mg QHS PO Last administered on 03/07/18at 20: 13; Start 03/06/18 at 21:00 Levothyroxine Sodium (Synthroid) 88 mcg DAILY07 PO Last administered on at 07:00; Start 03/07/18 at 07:00 Atenolol (Tenormin) 25 mg DAILY PO Last administered on 03/08/18 09:00; Start 03/07/18 at 09:00 Calcium/Vitamin D (Oscal D 500mg/ 200uts) 1 tab BIDWMEALS PO Last administered on 03/08/18 08:00; Start 03/07/18 at 08:00 Lisinopril (Prinivil) 10 mg DAILY PO Last administered on 03/08/18 09:00; Start 03/07/18 at 09:00 Multivitamins (Thera M Plus) 1 tab DAILY PO Last administered on 03/08/18 09: 00; Start 03/07/18 at 09:00 Enoxaparin Sodium (Lovenox 30mg Syringe) 30 mg DAILY SQ Last administered on at 09:00; Start 03/07/18 at 09:00 Hydrochlorothiazide (Microzide) 12.5 mg DAILY PO Last administered on 09:00; Start 03/07/18 at 09:00 Info (Do NOT chart on this placeholder) 1 each 1X ONCE MC ; Start 03/07/18 at 09:00; Stop 03/07/18 at 09:01; Status UNV Influenza Virus Vaccine (Afluria Trivalent [id number] Syringe) 0.5 ml ONCE ONCE VAX IM Last administered on 03/07/18at 16:07; Start 03/07/18 at 09:00; Stop at 09:01; Status DC Lactobacillus Rhamnosus (Culturelle) 1 cap BID PO Last administered on at 09:00; Start 03/07/18 at 21:00 Amlodipine Besylate (Norvasc) 5 mg DAILY PO Last administered on 03/08/18at 11: 30; Start 03/08/18 at 11:30 Active Scripts Active Reported Atenolol 25 Mg Tablet 1 Tab PO DAILY Lisinopril-Hctz 10-12.5 Mg Tab (Lisinopril/Hydrochlorothiazide) 1 Each Tablet 1 Tab PO DAILY Levothyroxine Sodium 88 Mcg Tablet 1 Tab PO DAILY Multi-Vitamin Daily (Multivitamin) 1 Each Tablet 1 Each PO DAILY Caltrate 600 + D Tablet (Calcium Carbonate/Vitamin D3) 1 Each Tablet 1 Each PO BID Fish Oil 1,000 Mg Capsule ([place]-3 Fatty Acids/Fish Oil) 1 Each Capsule 1 Each PO BID Lipitor (Atorvastatin Calcium) 40 Mg Tablet 1 Tab PO QHS Aspirin 81 Mg Tab.chew 1 Tab PO DAILY Vitals/I & O Vital Sign - Last 24 Hours 03/07/18 03/07/18 03/07/18 03/07/18 15:00 17:30 17:35 17:40 Temp 98.0 98.0 Pulse 52 67 75 70 Resp 16 16 16 16 B/P (MAP) 123/57 (79) 136/70 (92) 143/75 (97) 152/71 (98) Pulse Ox 100 93 90 90 O2 Delivery Room Air Room Air Room Air Room Air 03/07/18 03/07/18 03/07/18 03/07/18 17:46 19:00 20:00 22:48 Temp 98.5 98.7 98.5 98.7 Pulse 72 75 Resp 18 18 B/P (MAP) 166/86 (112) 166/79 (108) 136/66 (89) Pulse Ox 94 90 O2 Delivery Room Air Room Air Room Air 03/08/18 03/08/18 03/08/18 03/08/18 03:00 07:00 07:05 08:00 Temp 99.5 98.0 99.5 98.0 Pulse 66 66 Resp 18 18 B/P (MAP) 158/71 (100) 188/100 (129) 197/102 (133) Pulse Ox 91 94 O2 Delivery Room Air Room Air Room Air 03/08/18 03/08/18 03/08/18 03/08/18 09:00 09:00 11:00 11:30 Temp 98.2 98.2 Pulse 66 66 60 60 Resp 16 B/P (MAP) 197/102 197/102 183/89 (120) 183/89 Pulse Ox 95 O2 Delivery Room Air Images Brain MRI: There is generalized parenchymal atrophy. Patchy and several small scattered areas of increased signal intensity are seen within the periventricular and subcortical white matter of both cerebral hemispheres on the FLAIR and T2-weighted images consistent with areas of mild small vessel ischemic disease. A 2.5 mm rounded area of decreased signal intensity is seen involving the right parietal lobe on the gradient echo images. 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 There is no surrounding edema or associated mass effect. No acute parenchymal abnormality is seen. No extra-axial fluid collection is seen. There is no MRI evidence of acute ischemia/infarction. Mild mucosal thickening in seen scattered throughout the paranasal sinuses. Normal flow voids are seen within the major vascular structures surrounding the brain parenchyma. Impression: No acute parenchymal abnormality is seen. Echocardiogram: LEFT VENTRICLE The left ventricle is normal size. There is normal left ventricular wall thickness. The left ventricular systolic function is normal. The Ejection Fraction is 55-60%. There is normal LV segmental wall motion. RIGHT VENTRICLE The right ventricle is normal size. The right ventricular systolic function is normal. ATRIA The left atrium size is normal. The right atrium size is normal. The interatrial septum is intact with no evidence for an atrial septal defect or patent foramen ovale as noted on 2-D or Doppler imaging. Injection of bubbles documented no interatrial shunt. AORTIC VALVE The aortic valve is calcified but opens well. Doppler and Color Flow revealed trace aortic regurgitation. There is no significant aortic valvular stenosis. MITRAL VALVE The mitral valve is calcified but opens well. There is no evidence of mitral valve prolapse. There is no mitral valve stenosis. Doppler and Color-flow revealed moderate mitral regurgitation. TRICUSPID VALVE The tricuspid valve is normal in structure and function. Doppler and Color Flow revealed moderate tricuspid regurgitation. There is moderate pulmonary hypertension. The PA pressure was estimated at 58 mmHg. There is no tricuspid valve stenosis. PULMONIC VALVE The pulmonic valve is not well visualized. Doppler and Color Flow revealed trace pulmonic valvular regurgitation. There is no pulmonic valvular stenosis. GREAT VESSELS The aortic root is normal in size. The ascending aorta is normal in size. The IVC is normal in size and collapses >50% with inspiration. PERICARDIAL EFFUSION There is no evidence of significant pericardial effusion. Critical Notification Critical Value: No <Conclusion> The left ventricular systolic function is normal. The Ejection Fraction is 55-60%. There is normal LV segmental wall motion. Moderate mitral regurgitation. Moderate tricuspid regurgitation. There is moderate pulmonary hypertension. The PA pressure was estimated at 58 mmHg. There is no evidence of significant pericardial effusion. Injection of bubbles documented no interatrial shunt. MOODY TORRES MD Mar 08, 2018 11:55
[2018-03-08] MEDS: cefTRIAXone IV Push 1 GM VIAL. IVP SCH (21:25)
[2018-03-08] MEDS: ATORVASTATIN CALCIUM 40 MG TABLET. PO SCH (21:26)
[2018-03-09 03:00] VITALS: BP 129/59
[2018-03-09] MEDS: LEVOTHYROXINE 88 MCG TABLET PO SCH (06:38)
[2018-03-09 07:00] VITALS: BP 161/79
[2018-03-09] MEDS: hydroCHLOROthiazide 12.5 MG CAPSULE PO SCH (07:29)
[2018-03-09] MEDS: LACTOBACILLUS RHAMNOSUS GG 1 CAPSULE. PO SCH (07:29)
[2018-03-09] MEDS: CALCIUM CARB/VIT D3 500/200 TABLET. PO SCH (07:29)
[2018-03-09] MEDS: MULTIVITAMIN with MINERAL TABLET. PO SCH (07:30)
[2018-03-09] MEDS: amLODIPine BESYLATE 5 MG TABLET PO SCH (07:30)
[2018-03-09] MEDS: ASPIRIN ENTERIC COATED 325 MG TABLET.DR. PO SCH (07:30)
[2018-03-09] MEDS: ATENOLOL 25 MG TABLET. PO SCH (07:31)
[2018-03-09] MEDS: LISINOPRIL 10 MG TABLET PO SCH (07:32)
[2018-03-09] MEDS ORDERED: ENOXAPARIN 40 MG/0.4 ML SYRINGE. SQ SCH (09:00)
--- NOTE | 2018-03-09 09:48 | PDOC ---
PROGRESS NOTES Assessment Problems Medical Problems: (1) Near syncope Status: Acute TIA with dizziness, near syncope, left sided heaviness, diplopia and blurred vision. Then yesterday she had some right arm and face numbness for a few moments, just as she was prepared to leave, all parameters were normal according to nursing. She feels fine today. She has had a full transient ischemic attack workup Plan ASA increased to 325 mg daily. No need to change Lipitor dose. Okay for discharge Stroke education offered Follow-up with primary physician for risk-factor management Follow-up with neurology as needed I instructed the patient to return to the emergency department immediately if she has more or logical symptoms. Additional studies could include transesophageal echocardiogram and ambulatory cardiac monitoring. Objective Vital Signs Date Time Temp Pulse Resp B/P (MAP) Pulse Ox O2 Delivery O2 Flow Rate FiO2 03/09/18 08:00 Room Air 03/09/18 07:32 64 161/79 03/09/18 07:00 97.5 16 95 97.5 Intake and Output 03/09/18 07:00 Intake Total 200 ml Balance 200 ml Intake Oral 200 ml # Voids 3 PHYSICAL EXAM Alert. Oriented to time, place and person. PERRL. EOMI. CN: no focal findings. Muscle tone: normal. Muscle strength: 5/5 DTR: 2+ Plantar reflex: flexor Gait: normal Sensory exam: no abnormal findings. No cerebellar signs elicited. Review of Relevant I have reviewed the following items cassandra (where applicable) has been applied. Labs Laboratory Tests Test 03/07/18 22:15 03/08/18 04:45 Urine Opiates Screen Neg (NEG) Urine Methadone Screen Neg (NEG) Urine Barbiturates Neg (NEG) Urine Phencyclidine Screen Neg (NEG) Urine Amphetamine/Methamphetamine Neg (NEG) Urine Benzodiazepines Screen Neg (NEG) Urine Cocaine Screen Neg (NEG) Urine Cannabinoids Screen Neg (NEG) Urine Ethyl Alcohol Neg (NEG) White Blood Count 10.2 x10^3/uL (4.0-11.0) Red Blood Count 4.29 x10^6/uL (3.50-5.40) Hemoglobin 13.8 g/dL (12.0-15.5) Hematocrit 40.0 % (36.0-47.0) Mean Corpuscular Volume 93 fL (79-100) Mean Corpuscular Hemoglobin 32 pg (25-35) Mean Corpuscular Hemoglobin Concent 35 g/dL (31-37) Red Cell Distribution Width 13.1 % (11.5-14.5) Platelet Count 173 x10^3/uL (140-400) Neutrophils (%) (Auto) 72 % (31-73) Lymphocytes (%) (Auto) 21 % (24-48) Monocytes (%) (Auto) 6 % (0-9) Eosinophils (%) (Auto) 1 % (0-3) Basophils (%) (Auto) 0 % (0-3) Neutrophils # (Auto) 7.3 x10^3uL (1.8-7.7) Lymphocytes # (Auto) 2.1 x10^3/uL (1.0-4.8) Monocytes # (Auto) 0.6 x10^3/uL (0.0-1.1) Eosinophils # (Auto) 0.1 x10^3/uL (0.0-0.7) Basophils # (Auto) 0.0 x10^3/uL (0.0-0.2) Sodium Level 139 mmol/L (136-145) Potassium Level 3.9 mmol/L (3.5-5.1) Chloride Level 103 mmol/L (98-107) Carbon Dioxide Level 25 mmol/L (21-32) Anion Gap 11 (6-14) Blood Urea Nitrogen 19 mg/dL (7-20) Creatinine 1.2 mg/dL (0.6-1.0) Estimated GFR (Cockcroft-Gault) 43.6 Glucose Level 88 mg/dL (70-99) Calcium Level 9.7 mg/dL (8.5-10.1) Medications Current Medications Sodium Chloride 500 ml @ 500 mls/hr Q1H IV Last administered on 03/06/18at 16: 17; Start 03/06/18 at 15:45; Stop 03/06/18 at 16:18; Status DC Sodium Chloride 1,000 ml @ 1,000 mls/hr 1X ONCE IV Last administered on at 17:55; Start 03/06/18 at 17:30; Stop 03/06/18 at 18:29; Status DC Ondansetron HCl (Zofran) 4 mg PRN Q8HRS PRN IV NAUSEA/VOMITING; Start 03/06/18 at 18:30; Stop 03/07/18 at 18:29; Status DC Morphine Sulfate (Morphine Sulfate) 4 mg PRN Q2HR PRN IV PAIN; Start 03/06/18 at 18:30; Stop 03/07/18 at 18:29; Status DC Fentanyl Citrate (Fentanyl 2ml Vial) 50 mcg PRN Q2HR PRN IV PAIN; Start at 18:30; Stop 03/07/18 at 18:29; Status DC Sodium Chloride 1,000 ml @ 125 mls/hr Q8H IV Last administered on 03/07/18at 16 :03; Start 03/06/18 at 18:27; Stop 03/07/18 at 18:26; Status DC Acetaminophen (Tylenol) 650 mg PRN Q4HRS PRN PO FEVER; Start 03/06/18 at 18:30 ; Stop 03/07/18 at 18:29; Status DC Ceftriaxone Sodium 1 gm/ Dextrose 50 ml @ 100 mls/hr Q24H IV ; Start 03/06/18 at 20:00; Status UNV Enoxaparin Sodium (Lovenox Per Pharmacy Prophylaxis Dosing) 1 each PRN DAILY PRN MC SEE COMMENTS; Start 03/06/18 at 20:00 Aspirin (Ecotrin) 325 mg 1X ONCE PO Last administered on 03/06/18at 21:02; Start 03/06/18 at 20:00; Stop 03/06/18 at 20:01; Status DC Aspirin (Ecotrin) 325 mg DAILYWBKFT PO Last administered on 03/09/18at 07:30; Start 03/07/18 at 08:00 Ceftriaxone Sodium (Rocephin) 1 gm QHS IVP Last administered on 03/08/18at 21:25 ; Start 03/06/18 at 19:52 Atorvastatin Calcium (Lipitor) 40 mg QHS PO Last administered on 03/08/18at 21: 26; Start 03/06/18 at 21:00 Levothyroxine Sodium (Synthroid) 88 mcg DAILY07 PO Last administered on at 06:38; Start 03/07/18 at 07:00 Atenolol (Tenormin) 25 mg DAILY PO Last administered on 03/09/18at 07:31; Start 03/07/18 at 09:00 Calcium/Vitamin D (Oscal D 500mg/ 200uts) 1 tab BIDWMEALS PO Last administered on 03/09/18at 07:29; Start 03/07/18 at 08:00 Lisinopril (Prinivil) 10 mg DAILY PO Last administered on 03/09/18at 07:32; Start 03/07/18 at 09:00 Multivitamins (Thera M Plus) 1 tab DAILY PO Last administered on 03/09/18at 07: 30; Start 03/07/18 at 09:00 Enoxaparin Sodium (Lovenox 30mg Syringe) 30 mg DAILY SQ Last administered on at 09:00; Start 03/07/18 at 09:00; Stop 03/08/18 at 13:51; Status DC Hydrochlorothiazide (Microzide) 12.5 mg DAILY PO Last administered on at 07:29; Start 03/07/18 at 09:00 Info (Do NOT chart on this placeholder) 1 each 1X ONCE MC ; Start 03/07/18 at 09:00; Stop 03/07/18 at 09:01; Status UNV Influenza Virus Vaccine (Afluria Trivalent [id number] Syringe) 0.5 ml ONCE ONCE VAX IM Last administered on 03/07/18at 16:07; Start 03/07/18 at 09:00; Stop at 09:01; Status DC Lactobacillus Rhamnosus (Culturelle) 1 cap BID PO Last administered on at 07:29; Start 03/07/18 at 21:00 Amlodipine Besylate (Norvasc) 5 mg DAILY PO Last administered on 03/09/18at 07: 30; Start 03/08/18 at 11:30 Enoxaparin Sodium (Lovenox 40mg Syringe) 40 mg DAILY SQ ; Start 03/09/18 at 09: 00 Active Scripts Active Reported Atenolol 25 Mg Tablet 1 Tab PO DAILY Lisinopril-Hctz 10-12.5 Mg Tab (Lisinopril/Hydrochlorothiazide) 1 Each Tablet 1 Tab PO DAILY Levothyroxine Sodium 88 Mcg Tablet 1 Tab PO DAILY Multi-Vitamin Daily (Multivitamin) 1 Each Tablet 1 Each PO DAILY Caltrate 600 + D Tablet (Calcium Carbonate/Vitamin D3) 1 Each Tablet 1 Each PO BID Fish Oil 1,000 Mg Capsule ([place]-3 Fatty Acids/Fish Oil) 1 Each Capsule 1 Each PO BID Lipitor (Atorvastatin Calcium) 40 Mg Tablet 1 Tab PO QHS Aspirin 81 Mg Tab.chew 1 Tab PO DAILY Vitals/I & O Vital Sign - Last 24 Hours 03/08/18 03/08/18 03/08/18 03/08/18 11:00 11:30 15:00 19:00 Temp 98.2 98.2 98.9 98.2 98.2 98.9 Pulse 60 60 63 65 Resp 16 18 18 B/P (MAP) 183/89 (120) 183/89 154/74 (100) 149/79 (102) Pulse Ox 95 92 94 O2 Delivery Room Air Room Air Room Air 03/08/18 03/08/18 03/09/18 03/09/18 19:30 23:00 03:00 07:00 Temp 98.2 98.1 97.5 98.2 98.1 97.5 Pulse 67 60 64 Resp 18 18 16 B/P (MAP) 131/73 (92) 129/59 (82) 161/79 (106) Pulse Ox 97 95 95 O2 Delivery Room Air Room Air Room Air Room Air 03/09/18 03/09/18 03/09/18 03/09/18 07:30 07:31 07:32 08:00 Pulse 64 64 64 B/P (MAP) 161/79 161/79 161/79 O2 Delivery Room Air Intake and Output 03/08/18 03/08/18 03/09/18 15:00 23:00 07:00 Intake Total 200 ml Balance 200 ml MOODY TORRES MD Mar 09, 2018 09:48
[2018-03-09 11:00] VITALS: BP 136/72
[2018-03-09] MEDS ORDERED: AMLO5TAB7 PO (12:23)
[2018-03-09] MEDS ORDERED: ASPI325T11 PO (12:23)
--- NOTE | 2018-03-09 12:26 | PDOC3 ---
Discharge Summary IPC Date of Admission: Feb 27, 2018 Discharge Date: Mar 09, 2018 Admitting Diagnosis TIA Final Diagnosis Problems Medical Problems: (1) Near syncope Status: Acute Brief Hospital Course Ms. Minor is a 78 old F who presented to us with TIA symptoms, work up was negative, it was discussed that she should be discharged with incraesed dose of aspirin. the patient had a recent cardiac w/u that was negative. the patient was sent home with amlodipine as well for better bp control NAD A&ox3 mmm neck w/o nodes s1 s2 rrr nomurmurs ctab soft nttp +bs no c/c/e strength and sesnation grossly intact greater than 30 min spent on discharge Patient History: FH: [place] (myocardial infarction) CONDITION AT DISCHARGE: Stable Scheduled Amlodipine Besylate (Amlodipine Besylate), 5 MG PO DAILY Aspirin (Aspirin), 1 TAB PO DAILY, (Reported) Aspirin (Aspirin Ec), 325 MG PO DAILYWBKFT Atenolol (Atenolol), 1 TAB PO DAILY, (Reported) Atorvastatin Calcium (Lipitor), 1 TAB PO QHS, (Reported) Calcium Carbonate/Vitamin D3 (Caltrate 600 + D Tablet), 1 EACH PO BID, (Reported ) Levothyroxine Sodium (Levothyroxine Sodium), 1 TAB PO DAILY, (Reported) Lisinopril/Hydrochlorothiazide (Lisinopril-Hctz 10-12.5 Mg Tab), 1 TAB PO DAILY, (Reported) Multivitamin (Multi-Vitamin Daily), 1 EACH PO DAILY, (Reported) [place]-3 Fatty Acids/Fish Oil (Fish Oil 1,000 Mg Capsule), 1 EACH PO BID, ( Reported) JOSEPH BLAND MD Mar 09, 2018 12:26
--- NOTE | 2018-03-15 12:33 | DS ---
DATE OF DISCHARGE: 03/09/2018 ADMISSION DIAGNOSIS: Near syncope. DISCHARGE DIAGNOSIS: Resolving near syncope. HOSPITAL COURSE: The patient is a pleasant 78-year-old female who presented with this near syncopal episode. She was admitted. We consulted Cardiology and Neurology. She got an MRI and a stress test. Over the next few days, she did well. We discharged back home. DISPOSITION: Home. ACTIVITY: As tolerated. DIET: Low sodium. MEDICATIONS: Please see the MRAD. TOTAL TIME ON DISCHARGE: 31 minutes. DWIGHT SUNG DO DR: KOMAL/ladonna JOB#: [id number] / [id number]
== END 2018-03-09 13:15 | disposition home or self-care (01) | DRG 64 ==
LOC: ER 15:19 → 4 NORTH 18:21
PROVIDERS: ADMIT Internal Medicine; ATTEND Internal Medicine
DX: I63.9 Cerebral infarction, unspecified (principal); N17.0 Acute kidney failure with tubular necrosis; G93.41 Metabolic encephalopathy; N39.0 Urinary tract infection, site not specified; R55 Syncope and collapse; E03.9 Hypothyroidism, unspecified; E78.00 Pure hypercholesterolemia, unspecified; E78.5 Hyperlipidemia, unspecified; I08.1 Rheumatic disorders of both mitral and tricuspid valves; I12.9 Hypertensive chronic kidney disease with stage 1 through stage 4 chronic kidney disease, or unspecified chronic kidney disease; I27.20 Pulmonary hypertension, unspecified; I49.9 Cardiac arrhythmia, unspecified; N18.3 Chronic kidney disease, stage 3 (moderate); Z79.82 Long term (current) use of aspirin; Z82.49 Family history of ischemic heart disease and other diseases of the circulatory system; Z87.891 Personal history of nicotine dependence; Z88.8 Allergy status to other drugs, medicaments and biological substances; Z88.2 Allergy status to sulfonamides
CPT/HCPCS: 99285; C8929; 36415; 70450; 70551; 71046; 80048; 80053; 80061; 80307; 81001; 82962; 83735; 84443; 84484; 85025; 87086; 90471; 90756; 93005; 93880; 96360; 96361; J0696; J1650; J7030; J7040; 92526; 92610; 97110; 97116; 97530; G0479; Q2035

== ENCOUNTER 2018-03-15 11:03 | Emergency (ER) | payer OTHER ==
[~2018-03-15] VITALS: Ht 165.1 cm; Wt 63.5 kg
[~2018-03-15 11:03] MED LIST changes: +AMLO5TAB7 PO; +ASPI325T11 PO
--- NOTE | 2018-03-15 11:08 | PHYS DOC ---
Past Medical History Past Medical History: High Cholesterol, Hypertension, Hyperthyroid, Other Additional Past Medical Histor: IRREG HEART BEAT Past Medical History Unable to obtain due to patient's current condition Past Surgical History: Tonsillectomy Past Surgical History Unable to obtain due to patient's current condition Alcohol Use: None Drug Use: None Social History Unable to obtain due to patient's current condition Adult General Chief Complaint Chief Complaint: NEURO SYMPTOMS/DEFICITS HPI HPI 78-year-old female presents via EMS as code stroke. Family member was with patient at time of occurrence. Family reports last know well at 1020A. Daughter reports she was in the car and reportedly was blinking her eyes multiple times, reported she was dizzy, grabbed her head, and then was unable to respond further. EMS reports patient would open and close eyes but otherwise unable to communicate. No known trauma. Patient was recently admitted to [facility] 1 week ago and was diagnosed with TIA. Full work up was performed with negative MRI at the time. Family reports patient has been dizzy since discharge. Reports had recently followed with her board handler who changed some of her medication. HPI limited due to patient's current condition. Review of Systems Review of Systems Eyes: Concern for possible visual changes by family reporting patient was blinking rapidly prior to episode Respiratory: Denies cough Cardiovascular: Denies chest pain GI: Denies nausea, vomiting, Integument: Denies rash or skin lesions [] Neurologic: Decreased responsiveness LOS limited due to patient's current condition. Current Medications Current Medications Current Medications Medications (Trade) Dose Ordered Sig/Alicja Start Time Stop Time Status Last Admin Dose Admin Alteplase, Recombinant 51.6 ml @ 51.6 mls/hr Q1H 03/15/18 13:00 03/15/18 13:59 Aspirin (Aspirin) 300 mg 1X ONCE 03/15/18 11:45 03/15/18 11:53 DC Info (CONTRAST GIVEN -- Rx MONITORING) 1 each PRN DAILY PRN 03/15/18 12:15 03/17/18 12:14 Iohexol (Omnipaque 300 Mg/ml) 75 ml 1X ONCE 03/15/18 12:30 03/15/18 12:31 DC 03/15/18 12:04 75 ML Labetalol HCl (Normodyne Iv Push) 10 mg PRN Q10MIN PRN 03/15/18 13:00 Nicardipine HCl 50 mg/Sodium Chloride 270 ml @ 27 mls/hr CONT PRN PRN 03/15/18 13:00 Sodium Chloride 50 ml @ 200 mls/hr 1X ONCE 03/15/18 13:00 03/15/18 13:14 Allergies Allergies Allergies Coded Allergies Type Severity Reaction Last Updated Verified Sulfa (Sulfonamide Antibiotics) Adverse Reaction Intermediate diarrhea Yes procaine Adverse Reaction Intermediate "DOESN'T WORK ON ME" 03/06/18 Yes Physical Exam Physical Exam Constitutional: Well developed, no gross signs of trauma appreciated HENT: Normocephalic, atraumatic, oropharynx moist Eyes: Pupils 4mm responsive, limited EOMI, conjunctiva normal, no discharge. [] Neck: supple, no stridor. [] Cardiovascular: Bradycardic, no murmur [] Lungs & Thorax: Bilateral breath sounds clear to auscultation, no wheezes, rhonchi, rales Abdomen: Soft, no tenderness Skin: Warm, dry, no erythema, no rash. [] Extremities: No tenderness, no edema. [] Neurologic: Alert will follow commands by opening and closing eyes, withdrawals from painful stimuli. GCS 9: eyes open spontaneously (4) , No verbal response ( 1), Withdraws from pain (4) Current Patient Data Vital Signs Vital Signs Date Time Temp Pulse Resp B/P (MAP) Pulse Ox O2 Delivery O2 Flow Rate FiO2 03/15/18 12:18 50 15 100 03/15/18 11:03 97.8 145/66 (92) Room Air 97.8 Lab Values Laboratory Tests Test 03/15/18 11:09 03/15/18 11:11 03/15/18 11:20 Glucose (Fingerstick) 101 mg/dL (70-99) H White Blood Count 8.9 x10^3/uL (4.0-11.0) Red Blood Count 4.24 x10^6/uL (3.50-5.40) Hemoglobin 13.5 g/dL (12.0-15.5) Hematocrit 39.7 % (36.0-47.0) Mean Corpuscular Volume 94 fL (79-100) Mean Corpuscular Hemoglobin 32 pg (25-35) Mean Corpuscular Hemoglobin Concent 34 g/dL (31-37) Red Cell Distribution Width 13.4 % (11.5-14.5) Platelet Count 291 x10^3/uL (140-400) Neutrophils (%) (Auto) 54 % (31-73) Lymphocytes (%) (Auto) 35 % (24-48) Monocytes (%) (Auto) 8 % (0-9) Eosinophils (%) (Auto) 3 % (0-3) Basophils (%) (Auto) 1 % (0-3) Neutrophils # (Auto) 4.8 x10^3uL (1.8-7.7) Lymphocytes # (Auto) 3.1 x10^3/uL (1.0-4.8) Monocytes # (Auto) 0.7 x10^3/uL (0.0-1.1) Eosinophils # (Auto) 0.2 x10^3/uL (0.0-0.7) Basophils # (Auto) 0.1 x10^3/uL (0.0-0.2) Prothrombin Time 13.0 SEC (11.7-14.0) Prothrombin Time INR 1.0 (0.8-1.1) PTT 28 SEC (24-38) Sodium Level 137 mmol/L (136-145) Potassium Level 4.2 mmol/L (3.5-5.1) Chloride Level 98 mmol/L (98-107) Carbon Dioxide Level 29 mmol/L (21-32) Anion Gap 10 (6-14) Blood Urea Nitrogen 31 mg/dL (7-20) H Creatinine 1.7 mg/dL (0.6-1.0) H Estimated GFR (Cockcroft-Gault) 29.1 BUN/Creatinine Ratio 18 (6-20) Glucose Level 123 mg/dL (70-99) H Calcium Level 10.4 mg/dL (8.5-10.1) H Magnesium Level 2.2 mg/dL (1.8-2.4) Total Bilirubin 0.9 mg/dL (0.2-1.0) Aspartate Amino Transferase (AST) 26 U/L (15-37) Alanine Aminotransferase (ALT) 29 U/L (14-59) Alkaline Phosphatase 70 U/L (46-116) Ammonia 17 mcmol/L (11-34) Creatine Kinase 53 U/L (26-192) Creatine Kinase MB (Mass) 1.4 ng/mL (0.0-3.6) Creatine Kinase MB Relative Index % (0-4) Troponin I Quantitative < 0.017 ng/mL (0.000-0.055) Total Protein 7.4 g/dL (6.4-8.2) Albumin 3.5 g/dL (3.4-5.0) Albumin/Globulin Ratio 0.9 (1.0-1.7) L Lactic Acid Level 1.1 mmol/L (0.4-2.0) Laboratory Tests 03/15/18 11:11 Laboratory Tests 03/15/18 11:11 EKG EKG @1114: Sinus bradycardia at 52bpm, No ST elevation. Radiology/Procedures Radiology/Procedures PROCEDURE: CT CODE STROKE HEAD WO ADDENDUM PQRS Compliance Statement: One or more of the following individualized dose reduction techniques were utilized for this examination: 1. Automated exposure control 2. Adjustment of the mA and/or kV according to patient size 3. Use of iterative reconstruction technique Electronically signed by: Osmar Ty MD (03/15/2018 12:08 PM) [facility] DICTATED AND SIGNED BY: OSMAR TY MD DATE: 03/15/18 1208 CC: PARADISE LLANES; FEDERICO TRIPATHI DO ~ CT of the head without contrast, 03/15/2018: HISTORY: Weakness, dizziness, left facial droop Comparison is made to a study from 03/06/2018. There is mild cerebral atrophy compatible with patient's age. The ventricles are within normal limits in size. There is no shift of the midline structures. There is no evidence of acute intracranial hemorrhage or mass effect. Calcifications are noted in the distal internal carotid and basilar arteries. IMPRESSION: No acute intracranial abnormality is detected. Note: The findings were called to personnel the [facility] ER at 11:23 AM on 03/15/2018. Electronically signed by: Osmar Ty MD (03/15/2018 11:23 AM) [facility] PROCEDURE: PORTABLE CHEST 1V Examination: PORTABLE CHEST 1V History: FACIAL DROOP, WEAKNESS, DIZZINESS Comparison/Correlation: 03/06/2018 two-view chest x-ray exam Findings: Portable semiupright frontal view of the chest was obtained. Heart size and pulmonary vasculature are normal. No pneumothorax. Limited pulmonary inflation is evident. Bony structures are unremarkable. Impression: No active disease. Electronically signed by: Kendrick Bruce, MD (03/15/2018 11:50 AM) [id number] PROCEDURE: CT ANGIOGRAPHY HEAD AND NECK CTA of the head and neck with contrast, 03/15/2018: HISTORY: Left-sided facial droop Multidetector CT imaging was performed following an IV bolus injection of iodinated contrast material. Multiplanar reconstructions were produced including MIP and 3-D volume rendered reconstructions of the major arteries. There is moderate calcific plaquing of the aortic arch. No high-grade stenosis is seen at the cervicocephalic arterial origins. There is moderate calcific plaquing at both carotid bifurcations, left greater than right. There is only mild underlying narrowing of the left carotid bulb and proximal internal carotid arteries. No high-grade stenosis is evident. The distal internal carotid arteries in the upper neck are widely patent. There is mild calcific plaquing involving the cavernous segments without evidence of high-grade stenosis. The anterior cerebral and middle cerebral arteries and their major branches are unremarkable. The right vertebral artery is widely patent. It is dominant. The left vertebral artery in the neck is patent but small. It is not clearly seen at the level of the foramen magnum. The proximal basilar artery is patent. There is abrupt obstruction of the distal basilar artery. The proximal posterior cerebral arteries are opacified, probably via collateral circulation, including a tiny visible right posterior communicating artery. IMPRESSION: 1. 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 2. Mild to moderate calcific plaquing at the carotid bifurcations with only mild associated luminal narrowing. Note: The findings were discussed with Dr. Sauceda at approximately 12:50 PM on 03/15/2018. Course & Med Decision Making Course & Med Decision Making Pertinent Labs and Imaging studies reviewed. (See chart for details) Patient presents via EMS as CODE STROKE. GCS 8 and NIHSS 30. Patient will open and close her eyes on command. CT head negative. EKG with sinus bradycardia. Labs obtained and posted to chart. Last known well 1020. Patient recently admitted to hospital for TIA. Family reports patient has continued to report dizziness prior to event today. Discussed with Dr. Sauceda (neurologist) after CT head negative. Reports would hold TPA now but would send for CTA head/carotids. CTA with findings of basilar artery occlusion. TPA administration initiated. Dr. Sauceda discussed case with Dr. Person (neurointerventionalist) at who is accepting of transfer. Discussed with Rossana RN with transfer to . Patient to present via EMS through ED with plan to take patient directly to lab for clot retrieval. Discussed current findings and plan with patient and family, who acknowledge understanding and agreement. Dragon Disclaimer Dragon Disclaimer This electronic medical record was generated, in whole or in part, using a voice recognition dictation system. Departure Departure Impression: Primary Impression: Basilar artery embolism Disposition: 05 TRANSFER OTHER (- Dr. Person (neuro interventionalist)) Condition: CRITICAL Referrals: PARADISE LLANES (PCP) NIHSS Stroke Scale NIH Stroke Scale: NIH Stroke Scale Response (Comments) Value Level of Consciousness: 0 Alert/Responsive 0 LOC Questions: 2 Answers neither correct 2 LOC Commands: 1 Performs one task 1 Best Gaze: 0 Normal 0 Visual: 0 No visual loss 0 Facial Palsy: 3 Complete paralysis 3 Motor - Left Arm 4 No movement 4 Motor - Right Arm 4 No movement 4 Motor - Left Leg 4 No movement 4 Motor: Right Leg 4 No movement 4 Limb Ataxia: 0 Absent 0 Sensory: 1 Mid to moderate loss 1 Best Language: 3 Mute 3 Dysathria: 2 Severe 2 Extinction and Inattention: 2 Extinction 2 Total 30 Critical Care Time Critical care time was 45 minutes which includes time at bedside, spent in discussion of patient's care with specialists and/or family members, with interpretation of laboratory and/or radiological studies and is exclusive of procedures. FEDERICO TRIPATHI DO Mar 15, 2018 11:08
[2018-03-15] MEDS ORDERED: IV NORMAL SALINE 1000ML BAG 1,000 ML IV ONE (11:15)
--- NOTE | 2018-03-15 11:27 | RAD ---
CT of the head without contrast, 03/15/2018: HISTORY: Weakness, dizziness, left facial droop Comparison is made to a study from 03/06/2018. There is mild cerebral atrophy compatible with patient's age. The ventricles are within normal limits in size. There is no shift of the midline structures. There is no evidence of acute intracranial hemorrhage or mass effect. Calcifications are noted in the distal internal carotid and basilar arteries. IMPRESSION: No acute intracranial abnormality is detected. Note: The findings were called to personnel the [facility] ER at 11:23 AM on 03/15/2018. Electronically signed by: Osmar Ty MD (03/15/2018 11:23 AM) [facility]
--- NOTE | 2018-03-15 11:41 | EKG ---
[facility] [address] [place] [address] Test Date: 2018-03-15 Test Time: 11:14:26 Pat Name: MICKEY YOUSSEF Department: Room: Gender: F Lead Handler: : 1940 Requested By: FEDERICO TRIPATHI Order Number: [id number] Reading MD: Kiran Way MD Measurements Intervals [place] Rate: 52 P: 57 PA: 184 QRS: 61 QRSD: 80 T: 64 QT: 434 QTc: 406 Interpretive Statements SINUS RHYTHM Electronically Signed On 03-15-2018 14:09:[address] MD
[2018-03-15] MEDS ORDERED: ASPIRIN 300 MG SUPP.RECT PR ONE (11:45)
--- NOTE | 2018-03-15 11:54 | RAD ---
Examination: PORTABLE CHEST 1V History: FACIAL DROOP, WEAKNESS, DIZZINESS Comparison/Correlation: 03/06/2018 two-view chest x-ray exam Findings: Portable semiupright frontal view of the chest was obtained. Heart size and pulmonary vasculature are normal. No pneumothorax. Limited pulmonary inflation is evident. Bony structures are unremarkable. Impression: No active disease. Electronically signed by: Kendrick Barrera MD (03/15/2018 11:50 AM) [id number]
[2018-03-15] MEDS ORDERED: CONTRAST GIVEN. MC PRN (12:15)
[2018-03-15] MEDS ORDERED: IOHEXOL 300 MG/ML 100ML VIAL. IV ONE (12:30)
[2018-03-15 12:50] LABS: BASO # 0.1 x10^3/uL (0.0-0.2); BASO % 1 % (0-3); EOS # 0.2 x10^3/uL (0.0-0.7); EOS % 3 % (0-3); HEMATOCRIT 39.7 % (36.0-47.0); HEMOGLOBIN 13.5 g/dL (12.0-15.5); LYMPH # 3.1 x10^3/uL (1.0-4.8); LYMPH % 35 % (24-48); MEAN CORPUSCULAR HEMOGLOBIN 32 pg (25-35); MEAN CORPUSCULAR HGB CONC 34 g/dL (31-37); MEAN CORPUSCULAR VOLUME 94 fL (79-100); MONO # 0.7 x10^3/uL (0.0-1.1); MONO % 8 % (0-9); NEUT # 4.8 x10^3uL (1.8-7.7); NEUT % 54 % (31-73); PLATELET COUNT 291 x10^3/uL (140-400); RED BLOOD COUNT 4.24 x10^6/uL (3.50-5.40); RED CELL DISTRIBUTION WIDTH 13.4 % (11.5-14.5); WHITE BLOOD COUNT 8.9 x10^3/uL (4.0-11.0)
[2018-03-15 12:51] LABS: CALCIUM 10.4 mg/dL (8.5-10.1); CREATININE 1.7 mg/dL (0.6-1.0); GFR 29.1; POTASSIUM 4.2 mmol/L (3.5-5.1)
[2018-03-15 12:56] LABS: ALBUMIN 3.5 g/dL (3.4-5.0); ALBUMIN/GLOBULIN RATIO 0.9 (1.0-1.7); MAGNESIUM 2.2 mg/dL (1.8-2.4); TOTAL BILIRUBIN 0.9 mg/dL (0.2-1.0); TOTAL PROTEIN 7.4 g/dL (6.4-8.2)
[2018-03-15] MEDS ORDERED: IV NORMAL SALINE 50ML 50 ML IV ONE ×2 (13:00)
[2018-03-15] MEDS ORDERED: LABETALOL 20 MG/4 ML DISP.SYRIN. IVP PRN (13:00)
[2018-03-15] MEDS ORDERED: ALTEPLASE 5.7 MG IV ONE (13:00)
[2018-03-15] MEDS ORDERED: ALTEPLASE IV SCH (13:00)
[2018-03-15] MEDS ORDERED: ALTEPLASE 0 MG IV ONE (13:00)
[2018-03-15] MEDS ORDERED: ALTEPLASE 0 MG IV SCH (13:00)
[2018-03-15 13:04] LABS: CREATINE KINASE 53 U/L (26-192)
--- NOTE | 2018-03-15 13:09 | RAD ---
CTA of the head and neck with contrast, 03/15/2018: HISTORY: Left-sided facial droop Multidetector CT imaging was performed following an IV bolus injection of iodinated contrast material. Multiplanar reconstructions were produced including MIP and 3-D volume rendered reconstructions of the major arteries. There is moderate calcific plaquing of the aortic arch. No high-grade stenosis is seen at the cervicocephalic arterial origins. There is moderate calcific plaquing at both carotid bifurcations, left greater than right. There is only mild underlying narrowing of the left carotid bulb and proximal internal carotid arteries. No high-grade stenosis is evident. The distal internal carotid arteries in the upper neck are widely patent. There is mild calcific plaquing involving the cavernous segments without evidence of high-grade stenosis. The anterior cerebral and middle cerebral arteries and their major branches are unremarkable. The right vertebral artery is widely patent. It is dominant. The left vertebral artery in the neck is patent but small. It is not clearly seen at the level of the foramen magnum. The proximal basilar artery is patent. There is abrupt obstruction of the distal basilar artery. The proximal posterior cerebral arteries are opacified, probably via collateral circulation, including a tiny visible right posterior communicating artery. IMPRESSION: 1. 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 2. Mild to moderate calcific plaquing at the carotid bifurcations with only mild associated luminal narrowing. Note: The findings were discussed with Dr. Sauceda at approximately 12:50 PM on 03/15/2018. PQRS Compliance Statement: One or more of the following individualized dose reduction techniques were utilized for this examination: 1. Automated exposure control 2. Adjustment of the mA and/or kV according to patient size 3. Use of iterative reconstruction technique Note: Stenosis calculations for CT, MRA and conventional angiography are based upon determination of the distal ICA diameter in accordance with the NASCET methodology. Stenosis calculations for Doppler studies are derived from validated velocity criteria which are known to correlate with NASCET methodology of determining stenosis. Electronically signed by: Osmar Ty MD (03/15/2018 1:04 PM) [facility]
[2018-03-15 13:10] VITALS: BP 130/61
--- NOTE | 2018-03-15 13:21 | PDOC2 ---
NEUROLOGY CONSULT Date of Admission Date of Admission DATE: 03/15/18 TIME: 13:06 Reason for Consult Reason for Consult: Stroke symptoms Referring Physician Referring Physician: Dr. Alex Source Source: Caregiver, Chart review, Patient History of Present Illness History of Present Illness The patient is a 78-year-old right-handed female whom I met during her hospital stay 10 days ago when she presented with some temporary left-sided weakness and some nonspecific dizziness, mainly of a lightheaded variety. MRI, carotid Doppler, and echocardiogram were negative. She was discharged on aspirin, continued on statin, and also was on a calcium channel myriam. She went to see her forming tube selector this morning. At 10:20 AM, she was driving with her daughter when she suddenly grabbed her head and cried out "help me!" She then had a decreased level of consciousness. She ever fully lost consciousness and her eyes were open. Paramedics were summoned. Blood pressure was normal. Past Medical History Cardiovascular: HTN CENTRAL NERVOUS SYSTEM: TIA Past Surgical History Past Surgical History: No pertinent history Family History Family History: Other ([place]) Social History Social History , lives on own, no tobacco or alcohol Current Medications Current Medications Current Medications Sodium Chloride 1,000 ml @ 1,000 mls/hr 1X ONCE IV Last administered on at 11:46; Start 03/15/18 at 11:15; Stop 03/15/18 at 12:14; Status DC Aspirin (Aspirin) [address] ; Start 03/15/18 at 11:45; Stop 03/15/18 at 11:53; Status DC Iohexol (Omnipaque 300 Mg/ml) 75 ml 1X ONCE IV Last administered on 03/15/18at 12:04; Start 03/15/18 at 12:30; Stop 03/15/18 at 12:31; Status DC Info (CONTRAST GIVEN -- Rx MONITORING) 1 each PRN DAILY PRN MC SEE COMMENTS; Start 03/15/18 at 12:15; Stop 03/17/18 at 12:14 Alteplase, Recombinant 0 ml @ 0 mls/hr 1X ONCE IV ; Start 03/15/18 at 13:00; Stop 03/15/18 at 13:01; Status UNV Alteplase, Recombinant 0 ml @ 0 mls/hr Q1H IV ; Start 03/15/18 at 13:00; Stop 03/15/18 at 13:01; Status UNV Sodium Chloride 50 ml @ 0 mls/hr 1X ONCE IV ; Start 03/15/18 at 13:00; Stop at 13:01; Status UNV Labetalol HCl (Normodyne Iv Push) 10 mg PRN Q10MIN PRN IVP HYPERTENSION, SEE COMMENTS; Start 03/15/18 at 13:00 Nicardipine HCl 50 mg/Sodium Chloride 270 ml @ 27 mls/hr CONT PRN PRN IV HYPERTENSION, SEE COMMENTS; Start 03/15/18 at 13:00 Alteplase, Recombinant 5.7 ml @ 342 mls/hr 1X ONCE IV ; Start 03/15/18 at 13: 00; Stop 03/15/18 at 13:01; Status DC Alteplase, Recombinant 51.6 ml @ 51.6 mls/hr Q1H IV ; Start 03/15/18 at 13:00; Stop 03/15/18 at 13:59 Sodium Chloride 50 ml @ 200 mls/hr 1X ONCE IV ; Start 03/15/18 at 13:00; Stop 03/15/18 at 13:14 Active Scripts Active Amlodipine Besylate 5 Mg Tablet 5 Mg PO DAILY 30 Days Aspirin Ec (Aspirin) 325 Mg Tablet.dr 325 Mg PO DAILYWBKFT 30 Days Reported Atenolol 25 Mg Tablet 1 Tab PO DAILY Lisinopril-Hctz 10-12.5 Mg Tab (Lisinopril/Hydrochlorothiazide) 1 Each Tablet 1 Tab PO DAILY Levothyroxine Sodium 88 Mcg Tablet 1 Tab PO DAILY Multi-Vitamin Daily (Multivitamin) 1 Each Tablet 1 Each PO DAILY Caltrate 600 + D Tablet (Calcium Carbonate/Vitamin D3) 1 Each Tablet 1 Each PO BID Fish Oil 1,000 Mg Capsule ([place]-3 Fatty Acids/Fish Oil) 1 Each Capsule 1 Each PO BID Lipitor (Atorvastatin Calcium) 40 Mg Tablet 1 Tab PO QHS Allergies Allergies: Coded Allergies: Sulfa (Sulfonamide Antibiotics) (Verified Adverse Reaction, Intermediate, diarrhea, 02/03/15) procaine (Verified Adverse Reaction, Intermediate, "DOESN'T WORK ON ME", ) ROS Review of System Patient denies fevers, chills, weight loss, dyspnea, angina, abdominal pain, change in bowels, or dysuria. 14-point review of systems is negative. Physical Exam Physical Examination General: Well-developed, well-nourished, white female, in no acute distress HEENT: Normocephalic andatraumatic.Temporal arteriespulsatile and nontender. Neck: Supple without bruit, no meningismus Musculoskeletal: Stability:see neurologic. Gait exam:see neurologic. Tone:see neurologic. Strength:see neurologic. Neurological: Mental Status:orientation, memory, attention span/concentration, language, fund of knowledge: Eyes are open and she follows commands, but is nonverbal. Cranial Nerves:Pupils equal and reactive to light, extraocular movements are intact, visual chisholm are full to confrontation. Facial sensation is normal. There is no facial asymmetry, does not move mouth to command. Vestibulo-ocular reflex is intact. All other cranial related problems are negative except as mentioned before.Reflexes:2+ and symmetric with flexor plantar responses. Motor:Full flexion response in the legs to minimal stimulation, no response in the arms. Coordination:not cooperative. Rapid alternating movements and fine finger movements are intact. Gait:not tested. Sensory:Responds to pinprick in all 4 extremities Vitals VITALS Vital Signs Date Time Temp Pulse Resp B/P (MAP) Pulse Ox O2 Delivery O2 Flow Rate FiO2 03/15/18 12:18 50 15 100 03/15/18 11:03 97.8 145/66 (92) Room Air 97.8 Labs Labs Laboratory Tests Test 03/15/18 11:09 03/15/18 11:11 03/15/18 11:20 Glucose (Fingerstick) 101 mg/dL (70-99) White Blood Count 8.9 x10^3/uL (4.0-11.0) Red Blood Count 4.24 x10^6/uL (3.50-5.40) Hemoglobin 13.5 g/dL (12.0-15.5) Hematocrit 39.7 % (36.0-47.0) Mean Corpuscular Volume 94 fL (79-100) Mean Corpuscular Hemoglobin 32 pg (25-35) Mean Corpuscular Hemoglobin Concent 34 g/dL (31-37) Red Cell Distribution Width 13.4 % (11.5-14.5) Platelet Count 291 x10^3/uL (140-400) Neutrophils (%) (Auto) 54 % (31-73) Lymphocytes (%) (Auto) 35 % (24-48) Monocytes (%) (Auto) 8 % (0-9) Eosinophils (%) (Auto) 3 % (0-3) Basophils (%) (Auto) 1 % (0-3) Neutrophils # (Auto) 4.8 x10^3uL (1.8-7.7) Lymphocytes # (Auto) 3.1 x10^3/uL (1.0-4.8) Monocytes # (Auto) 0.7 x10^3/uL (0.0-1.1) Eosinophils # (Auto) 0.2 x10^3/uL (0.0-0.7) Basophils # (Auto) 0.1 x10^3/uL (0.0-0.2) Prothrombin Time 13.0 SEC (11.7-14.0) Prothromb Time International Ratio 1.0 (0.8-1.1) Activated Partial Thromboplast Time 28 SEC (24-38) Sodium Level 137 mmol/L (136-145) Potassium Level 4.2 mmol/L (3.5-5.1) Chloride Level 98 mmol/L (98-107) Carbon Dioxide Level 29 mmol/L (21-32) Anion Gap 10 (6-14) Blood Urea Nitrogen 31 mg/dL (7-20) Creatinine 1.7 mg/dL (0.6-1.0) Estimated GFR (Cockcroft-Gault) 29.1 BUN/Creatinine Ratio 18 (6-20) Glucose Level 123 mg/dL (70-99) Calcium Level 10.4 mg/dL (8.5-10.1) Magnesium Level 2.2 mg/dL (1.8-2.4) Total Bilirubin 0.9 mg/dL (0.2-1.0) Aspartate Amino Transf (AST/SGOT) 26 U/L (15-37) Alanine Aminotransferase (ALT/SGPT) 29 U/L (14-59) Alkaline Phosphatase 70 U/L (46-116) Ammonia 17 mcmol/L (11-34) Creatine Kinase 53 U/L (26-192) Creatine Kinase MB (Mass) 1.4 ng/mL (0.0-3.6) Creatine Kinase MB Relative Index % (0-4) Troponin I Quantitative < 0.017 ng/mL (0.000-0.055) Total Protein 7.4 g/dL (6.4-8.2) Albumin 3.5 g/dL (3.4-5.0) Albumin/Globulin Ratio 0.9 (1.0-1.7) Lactic Acid Level 1.1 mmol/L (0.4-2.0) Laboratory Tests Test 03/15/18 11:09 03/15/18 11:11 03/15/18 11:20 Glucose (Fingerstick) 101 mg/dL (70-99) White Blood Count 8.9 x10^3/uL (4.0-11.0) Red Blood Count 4.24 x10^6/uL (3.50-5.40) Hemoglobin 13.5 g/dL (12.0-15.5) Hematocrit 39.7 % (36.0-47.0) Mean Corpuscular Volume 94 fL (79-100) Mean Corpuscular Hemoglobin 32 pg (25-35) Mean Corpuscular Hemoglobin Concent 34 g/dL (31-37) Red Cell Distribution Width 13.4 % (11.5-14.5) Platelet Count 291 x10^3/uL (140-400) Neutrophils (%) (Auto) 54 % (31-73) Lymphocytes (%) (Auto) 35 % (24-48) Monocytes (%) (Auto) 8 % (0-9) Eosinophils (%) (Auto) 3 % (0-3) Basophils (%) (Auto) 1 % (0-3) Neutrophils # (Auto) 4.8 x10^3uL (1.8-7.7) Lymphocytes # (Auto) 3.1 x10^3/uL (1.0-4.8) Monocytes # (Auto) 0.7 x10^3/uL (0.0-1.1) Eosinophils # (Auto) 0.2 x10^3/uL (0.0-0.7) Basophils # (Auto) 0.1 x10^3/uL (0.0-0.2) Prothrombin Time 13.0 SEC (11.7-14.0) Prothromb Time International Ratio 1.0 (0.8-1.1) Activated Partial Thromboplast Time 28 SEC (24-38) Sodium Level 137 mmol/L (136-145) Potassium Level 4.2 mmol/L (3.5-5.1) Chloride Level 98 mmol/L (98-107) Carbon Dioxide Level 29 mmol/L (21-32) Anion Gap 10 (6-14) Blood Urea Nitrogen 31 mg/dL (7-20) Creatinine 1.7 mg/dL (0.6-1.0) Estimated GFR (Cockcroft-Gault) 29.1 BUN/Creatinine Ratio 18 (6-20) Glucose Level 123 mg/dL (70-99) Calcium Level 10.4 mg/dL (8.5-10.1) Magnesium Level 2.2 mg/dL (1.8-2.4) Total Bilirubin 0.9 mg/dL (0.2-1.0) Aspartate Amino Transf (AST/SGOT) 26 U/L (15-37) Alanine Aminotransferase (ALT/SGPT) 29 U/L (14-59) Alkaline Phosphatase 70 U/L (46-116) Ammonia 17 mcmol/L (11-34) Creatine Kinase 53 U/L (26-192) Creatine Kinase MB (Mass) 1.4 ng/mL (0.0-3.6) Creatine Kinase MB Relative Index % (0-4) Troponin I Quantitative < 0.017 ng/mL (0.000-0.055) Total Protein 7.4 g/dL (6.4-8.2) Albumin 3.5 g/dL (3.4-5.0) Albumin/Globulin Ratio 0.9 (1.0-1.7) Lactic Acid Level 1.1 mmol/L (0.4-2.0) Images Images Head CT: There is mild cerebral atrophy compatible with patient's age. The ventricles are within normal limits in size. There is no shift of the midline structures. There is no evidence of acute intracranial hemorrhage or mass effect. Calcifications are noted in the distal internal carotid and basilar arteries. IMPRESSION: No acute intracranial abnormality is detected. I reviewed the CTA with Dr. 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 Alex at 11:30 AM and recommended the CT angiogram. I have now discussed the case with Dr. Davis, stroke neurologist, who recommends starting alteplase and shipping the patient to for possible interventional radiology. I discussed the risks, benefits, alternatives, and side effects with the patient 's family including , severe bleeding including intracranially, poor outcome for stroke. I answered their questions. Thank you for letting me help with the patient's care. MOODY TORRES MD Mar 15, 2018 13:21
== END 2018-03-15 13:21 | disposition short-term general hospital (02) ==
LOC: ER 11:03
DX: I65.1 Occlusion and stenosis of basilar artery (principal); E78.00 Pure hypercholesterolemia, unspecified; I10 Essential (primary) hypertension; E03.9 Hypothyroidism, unspecified; Z88.2 Allergy status to sulfonamides; Z88.5 Allergy status to narcotic agent
CPT/HCPCS: 36415; 37195; 70450; 70496; 70498; 71045; 80053; 82140; 82553; 82962; 83605; 83735; 84484; 85025; 85610; 85730; 93005; 96360; 99291; J2997; J7030; Q9967